=== PATIENT | male | born 1950 | race Caucasian/White ===

== ENCOUNTER 2017-05-10 11:23 | Emergency (ER) | payer BC ==
[~2017-05-10] VITALS: Ht 182.9 cm; Wt 108.2 kg
[~2017-05-10 11:23] MED LIST: ASPEC81 PO; ATV1 PO; CRS10 PO; ELET20TA PO; GLC500 PO; GLIM2TAB2 PO; KETO0.0216 OP; L-ME1CAP3 PO; LOSA50TA6 PO; MAGN400T6 PO; METO50TA7 PO; MISCCAP80 PO; MULT-506 PO; RANI150T3 PO; RXC5 PO; SILD100T PO; [UNRECOGNIZED DRUG - CODE] TOP
[2017-05-10 11:26] VITALS: TEMP 36.7; Ht 182.9 cm; Wt 108.2 kg
[2017-05-10] MEDS ORDERED: SODIUM CHLORIDE 0.9% 1000ML 1,000 ML IV STA (11:56)
[2017-05-10] MEDS ORDERED: GLC500 PO (12:35)
[2017-05-10] MEDS ORDERED: EMPA1TAB PO (12:35)
[2017-05-10] MEDS ORDERED: LEVO25TA5 PO (12:35)
[2017-05-10] MEDS ORDERED: DULA1INJ PO (12:35)
[2017-05-10] MEDS ORDERED: ROSU40TA18 PO (12:35)
[2017-05-10] MEDS ORDERED: ASPI-435 PO (12:35)
[2017-05-10 12:38] LABS: BASO % 0.4 %; BASO ABS # 0.03 K/uL (0-0.2); COMPLETE YES; EOS % 1.5 %; HEMATOCRIT 47.7 % (42-52); IG% 0.3 %; LYMPH % 22.5 %; LYMPH ABS # 1.75 K/uL (1.2-3.4); MEAN CORPUSCULAR HEMOGLOBIN 31.1 pg (25-34); MEAN CORPUSCULAR HGB CONC 34.2 g/dl (32-36); MEAN PLATELET VOLUME 11.2 fL (7.4-10.4); MONO % 8.6 %; NEUT % 66.7 %; PLATELET COUNT 220 K/uL (130-400); RED BLOOD COUNT 5.24 M/uL (4.7-6.1); WHITE BLOOD COUNT 7.77 K/uL (4.8-10.8)
[2017-05-10 12:46] LABS: POINT OF CARE TROPONIN I < 0.030 ng/ml (0-0.045)
[2017-05-10 12:59] LABS: CALCIUM 9.4 mg/dl (8.5-10.1); CREATININE 0.99 mg/dl (0.60-1.40); POTASSIUM 3.9 mmol/L (3.5-5.1)
[2017-05-10 13:04] LABS: CKMB/CK RATIO 1.9 (0-3.0)
[2017-05-10 14:06] LABS: MAGNESIUM 2.1 mg/dl (1.8-2.4)
[2017-05-10] MEDS ORDERED: OPTIRAY 320 IV PRN (14:30)
--- NOTE | 2017-05-10 14:43 | DIAGNOSTIC IMAGING REPORT ---
CT ANGIOGRAM OF THE CHEST CLINICAL HISTORY: Palpitations. COMPARISON STUDY: Chest radiographs dated 05/31/2015. TECHNIQUE: Following the IV administration of 93 cc of Optiray 320, CT angiogram of the chest was performed from the upper abdomen to the thoracic inlet utilizing the pulmonary embolus protocol. Images are reviewed in the axial, sagittal, and coronal planes. 3-D MIPS images are created and assessed. IV contrast was administered without complication. A dose lowering technique was utilized adhering to the principles of ALARA. CT DOSE: 680.94 mGy.cm FINDINGS: Thyroid: Imaged portions of the thyroid gland are normal in size and attenuation. Thoracic aorta: The thoracic aorta is normal in caliber and demonstrates standard 3-vessel arch anatomy. No dissection is seen. Pulmonary vasculature: The pulmonary trunk is normal in caliber. There are no filling defects identified in main, lobar, or segmental pulmonary branches to suggest pulmonary embolus. Heart: The heart is mildly enlarged and without pericardial effusion. There are coronary artery calcifications. Lungs and pleural spaces: There is no airspace consolidation or pleural effusion. Mild peribronchial thickening suggests reactive airway disease. A tiny calcified granuloma is noted in the right lower lobe. Linear atelectasis is seen at the left lung base. The trachea and central airways are clear. Mediastinum: There is no mediastinal lymphadenopathy. Precious: Clear. Axillae: There is no axillary lymphadenopathy. Upper abdomen: There is a tiny hiatal hernia. Partially visualized upper abdominal viscera is otherwise within normal limits. Skeletal structures: The skeletal structures are osteopenic. No lytic or blastic bony lesions are seen. Fusion hardware is seen at the thoracolumbar junction and in the lower cervical spine. IMPRESSION: 1. There is no evidence of pulmonary embolus in the main, lobar, or segmental pulmonary arteries. 2. Cardiomegaly. 3. There is no airspace consolidation or pleural effusion. Mild peribronchial thickening suggests reactive airway disease. Clinical correlation will be required. Electronically signed by: Dandre Patel M.D. 05/10/2017 2:42 PM Dictated Date/Time: 05/10/2017 2:37 PM
[2017-05-10 15:14] VITALS: BP 131/87; PULSE 67; O2SAT 97
--- NOTE | 2017-05-10 18:21 | EMERGENCY ROOM VISIT NOTE ---
ED Visit Note First contact with patient: 11:45 Chief Complaint: Heart flutters. History of Present Illness: Mr. Negrete is a 67-year-old white male who ambulates into the ED accompanied by his complaining of heart palpitations. Historically patient reports he has had a pulmonary embolism and tachycardia arrhythmia in the past; he doesn't remember the classification. He reports she' s been the hospital multiple times many years ago and received medications that slowed his heart rate down. Additionally he reports he does not have coronary artery disease. And lastly he does report his father had coronary artery disease. Patient reports for the last 4-5 days he has been having intermittent episodes of heart palpitations. He reports these occur at rest and with activity. They last for different length the time but self resolve. He reports they always start and he immediately feels like he needs to take a deep breath. The longest episode was yesterday while he was [place] in the [place]. He reports this episode lasted approximately 45 minutes. He has not taken any medications for his palpitations. He has not identified any aggravating or alleviating factors related to the palpitations. Associated with the palpitations he reports when they occur he feels slightly fatigued. He denies lightheadedness, dizziness, chest pain, shortness of breath, cough, wheezing, abdominal pain, nausea, vomiting, diaphoresis. Additionally his does report that he has been having some increasing cramping at night in his legs. Review of Systems: As noted above in history of present illness. All body systems were reviewed and found to be negative as noted above. Past Medical History: As noted above, bronchitis, cervical canal stenosis, lumbar canal stenosis, prostrate cancer, gastric ulcers and pulmonary embolism. Current Medications: Metoprolol, Cozaar, Relpax, magnesium, Zaditor, Viagra, probiotic, multivitamins, Zantac, aspirin, Trulicity, metformin, levothyroxine, Rosuvastatin, Jardiance. Allergies to Medications: Erythromycin, prednisone, simvastatin, Zithromax. Social History: Patient is currently employed; he feels safe in his home environment; he denies tobacco use and admits to social alcohol use. Physical Examination: Vital Signs: Date Time Temp Pulse Resp B/P (MAP) Pulse Ox O2 Delivery O2 Flow Rate FiO2 05/10/17 15:14 67 18 131/87 97 05/10/17 13:42 66 20 167/105 95 Room Air 05/10/17 12:17 81 05/10/17 11:41 98 Room Air 05/10/17 11:26 36.7 82 16 190/106 97 Room Air 05/10/17 11:26 97 Room Air GENERAL: 67-year-old male in no acute distress, nontoxic-appearing, afebrile and hemodynamically stable. NEUROLOGICAL: Awake, alert and oriented to person, place and time. Answering questions appropriately and following commands. Normal gait. Good hand eye coordination. No focal motor sensory deficits. SKIN: Warm, dry and pink. No soft tissue eruptions or trauma noted. HEENT: Atraumatic and normocephalic. PERRL. Sclera white and conjunctiva pink. No drainage from naris. Oral cavity moist and pink. Pharynx is nonerythematous or edematous. Speech normal. No lymphadenopathy. Trachea midline. No jugular venous distention. No carotid bruits. BACK: No tenderness over the bony spine. No CVA tenderness. THORAX: Lungs sounds are clear to auscultation and equal bilaterally with symmetrical chest wall. No wheezing, rales or rhonchi. No crepitus, tenderness , subcutaneous air or deformities noted. HEART: Regular rate and rhythm. No gallops, rubs or murmurs are appreciated. PMI is not displaced. No lifts, heaves or thrills. ABDOMEN: Flat, soft and nontender. Positive bowel sounds in all quadrants. No guarding, rigidity or organomegaly. EXTREMITIES: Moves all extremities well on command and with purpose. All distal neurovascular statuses are intact and equal bilaterally. No calf tenderness or cords. ED Course: Patient is assessed as noted above. Patient's medication list was reviewed. Laboratory Testing: Test 05/10/17 12:20 05/10/17 12:26 Range/Units White Blood Count 7.77 4.8-10.8 K/uL Red Blood Count 5.24 4.7-6.1 M/uL Hemoglobin 16.3 14.0-18.0 g/dL Hematocrit 47.7 42-52 % Mean Corpuscular Volume 91.0 80-100 fL Mean Corpuscular Hemoglobin 31.1 25-34 pg Mean Corpuscular Hemoglobin Concent 34.2 32-36 g/dl Platelet Count 220 130-400 K/uL Mean Platelet Volume 11.2 7.4-10.4 fL Neutrophils (%) (Auto) 66.7 % Lymphocytes (%) (Auto) 22.5 % Monocytes (%) (Auto) 8.6 % Eosinophils (%) (Auto) 1.5 % Basophils (%) (Auto) 0.4 % Neutrophils # (Auto) 5.18 1.4-6.5 K/uL Lymphocytes # (Auto) 1.75 1.2-3.4 K/uL Monocytes # (Auto) 0.67 0.11-0.59 K/uL Eosinophils # (Auto) 0.12 0-0.5 K/uL Basophils # (Auto) 0.03 0-0.2 K/uL RDW Standard Deviation 47.8 36.4-46.3 fL RDW Coefficient of Variation 14.3 11.5-14.5 % Immature Granulocyte % (Auto) 0.3 % Immature Granulocyte # (Auto) 0.02 0.00-0.02 K/uL Sodium Level 138 136-145 mmol/L Potassium Level 3.9 3.5-5.1 mmol/L Chloride Level 104 98-107 mmol/L Carbon Dioxide Level 27 21-32 mmol/L Anion Gap 7.0 3-11 mmol/L Blood Urea Nitrogen 18 7-18 mg/dl Creatinine 0.99 0.60-1.40 mg/dl Est Creatinine Clear Calc Drug Dose 94.5 ml/min Estimated GFR () 92.2 Estimated GFR (Non- 79.6 BUN/Creatinine Ratio 18.0 10-20 Random Glucose 175 70-99 mg/dl Calcium Level 9.4 8.5-10.1 mg/dl Magnesium Level 2.1 1.8-2.4 mg/dl Total Bilirubin 0.6 0.2-1 mg/dl Direct Bilirubin 0.2 0-0.2 mg/dl Aspartate Amino Transf (AST/SGOT) 15 15-37 U/L Alanine Aminotransferase (ALT/SGPT) 28 12-78 U/L Alkaline Phosphatase 90 45-117 U/L Total Creatine Kinase 114 39-308 U/L Creatine Kinase MB 2.2 0.5-3.6 ng/ml Creatine Kinase MB Ratio 1.9 0-3.0 Total Protein 7.2 6.4-8.2 gm/dl Albumin 3.6 3.4-5.0 gm/dl Lipase 125 73-393 U/L Bedside D-Dimer 198 0-450 ng/mlFEU Bedside Troponin I < 0.030 0-0.045 ng/ml EKG: Was read by myself and shows normal sinus rhythm with a ventricular rate of 77 bpm. Normal axis, intervals and complexes. No acute ST changes indicating ischemia, injury or infarction. Chest CTA: Was reviewed by myself and read by the radiologist showing no evidence of pulmonary embolism. Cardiomegaly. No airspace consolidation or pleural effusion. Mild peribronchial thickening suggestive reactive airway disease. Patient was hydrated with normal saline. Patient was reassessed multiple times during his stay in the emergency department. Patient's case was reviewed with Dr. Clay; we agreed on diagnostic approach, treatment, disposition and plan. Patient was educated about today's findings and instructed on his treatment plan ; he verbalizes understanding and agreement with this plan. Clinical Impression: Heart palpitations. Decision-Making: Initially my differential diagnosis I considered arrhythmias, pulmonary embolism, acute coronary syndrome, pneumothorax and other causes. Patient's blood pressure: Elevated. Blood pressure disposition: Situational. Disposition: Patient discharged home in stable condition accompanied by his ; prior to departure he was reassessed and subjectively reported he was not having any palpitation symptoms, chest pain or other concerning symptoms. Plan: Patient was encouraged to continue his current medications. Patient was encouraged to stay well-hydrated. Patient was encouraged to follow-up with his family physician and request for continued care and treatment. Patient was encouraged return ED for worsening palpitations, chest pain, shortness of breath, lightheadedness, fevers or any new/concerning symptoms.
== END 2017-05-10 15:15 | disposition home or self-care (01) ==
LOC: C.EDB 11:23 → C.EDA 15:15
DX: R00.2 Palpitations (principal); M48.02 Spinal stenosis, cervical region; M48.061 Spinal stenosis, lumbar region without neurogenic claudication; Z79.82 Long term (current) use of aspirin; Z79.84 Long term (current) use of oral hypoglycemic drugs; Z86.711 Personal history of pulmonary embolism; Z85.46 Personal history of malignant neoplasm of prostate; Z87.11 Personal history of peptic ulcer disease; Z82.49 Family history of ischemic heart disease and other diseases of the circulatory system

== ENCOUNTER → 2017-09-17 | Day surgery (SDC) | payer BC ==
[2017-08-04 13:08] VITALS: BMI 31.0
[2017-08-06 13:19] LABS: BASO % 0.6 %; BASO ABS # 0.05 K/uL (0-0.2); EOS % 1.3 %; EOS ABS # 0.12 K/uL (0-0.5); HEMATOCRIT 47.8 % (42-52); IG# 0.02 K/uL (0.00-0.02); LYMPH % 27.7 %; LYMPH ABS # 2.48 K/uL (1.2-3.4); MEAN CELL VOLUME 91.4 fL (80-100); MEAN CORPUSCULAR HEMOGLOBIN 30.6 pg (25-34); MEAN CORPUSCULAR HGB CONC 33.5 g/dl (32-36); MONO % 8.9 %; NEUT % 61.3 %; NEUT ABS # 5.48 K/uL (1.4-6.5); PLATELET COUNT 259 K/uL (130-400); RED CELL DISTRIBUTION WIDTH CV 14.6 % (11.5-14.5); WHITE BLOOD COUNT 8.95 K/uL (4.8-10.8)
[2017-08-06 13:34] LABS: CALCIUM 9.8 mg/dl (8.5-10.1); CREATININE 0.88 mg/dl (0.60-1.40); POTASSIUM 4.5 mmol/L (3.5-5.1)
[2017-08-28 10:08] VITALS: Ht 182.9 cm; Wt 103.6 kg
[2017-09-03 13:14] LABS: BASO % 0.5 %; BASO ABS # 0.06 K/uL (0-0.2); EOS % 1.1 %; EOS ABS # 0.13 K/uL (0-0.5); HEMATOCRIT 48.3 % (42-52); HEMOGLOBIN 16.2 g/dL (14.0-18.0); LYMPH % 22.6 %; LYMPH ABS # 2.57 K/uL (1.2-3.4); MEAN CELL VOLUME 91.5 fL (80-100); MEAN CORPUSCULAR HEMOGLOBIN 30.7 pg (25-34); MEAN CORPUSCULAR HGB CONC 33.5 g/dl (32-36); MEAN PLATELET VOLUME 10.9 fL (7.4-10.4); MONO % 6.5 %; MONO ABS # 0.74 K/uL (0.11-0.59); NEUT % 68.4 %; NEUT ABS # 7.77 K/uL (1.4-6.5); PLATELET COUNT 297 K/uL (130-400); RED CELL DISTRIBUTION WIDTH CV 14.6 % (11.5-14.5); RED CELL DISTRIBUTION WIDTH SD 49.3 fL (36.4-46.3); WHITE BLOOD COUNT 11.37 K/uL (4.8-10.8)
[2017-09-03 14:07] LABS: CALCIUM 9.8 mg/dl (8.5-10.1); POTASSIUM 4.5 mmol/L (3.5-5.1)
[~2017-09-17] VITALS: Ht 182.9 cm; Wt 103.6 kg
[~2017-09-17] MED LIST changes: +ADVIN25/60 INH; -ASPEC81 PO; +ASPI-435 PO; +ATROPINE SULFATE 0.1 MG/ML 5ML SYR IV PRN; -ATV1 PO; +BUPIVACAINE 0.25% 30 ML VIAL ONE; +CEFAZOLIN 2000MG IV PUSH 15 ML IV SCH; -CRS10 PO; +DEXAMETHASONE SOD INJ 4 MG/ML VIAL ONE; +DULA1INJ PO; +EMPA1TAB PO; +EpHEDrine SULFATE INJ 50 MG/ML AMP IV PRN; +EpHEDrine SULFATE INJ 50 MG/ML AMP ONE; +EpINEphrine INJ 1MG/ML AMP 1 MG/ML AMP ONE; +FENTANYL CITRATE INJ 50 MCG/1 ML 2 ML VIAL IV PRN; +FENTANYL CITRATE INJ 50 MCG/1 ML 2 ML VIAL ONE; -GLIM2TAB2 PO; +KETO10TA PO; +KETOROLAC TROMETHAMINE 30 MG/ML VIAL IV. PRN; -L-ME1CAP3 PO; +LACTATED RINGER'S 1000ML 1,000 ML IV SCH; +LEVO25TA5 PO; +LIDOCAINE HCL 2% 2 ML VIAL (20MG/ML) ONE; +LOSA1TAB38 PO; -LOSA50TA6 PO; -MAGN400T6 PO; +MAGN500T15 PO; -METO50TA7 PO; +METO50TA8 PO; +MIDAZOLAM HCL 1 MG/ML 2ML VIAL ONE; +ONDANSETRON INJ 2 MG/ML 2 ML VIAL IV PRN; +ONDANSETRON INJ 2 MG/ML 2 ML VIAL ONE; +OXYC-57 PO; +OXYCODONE/ACETAMINOPHEN 5-325 TAB PO PRN; +PRED10TA PO; +PROPOFOL IV EMULSION 10 MG/ML 20 ML VIAL IV ONE; +ROPIVACAINE 0.5% 5 MG/ML 30 ML VIAL ONE; +ROSU40TA28 PO; -RXC5 PO; +SODIUM CHLORIDE 0.9% 1000ML 1,000 ML IV SCH; +SODIUM CHLORIDE 0.9% INJ 10 ML VIAL ONE; +VNTHFA/IN INH
--- NOTE | 2017-09-17 12:34 | History & Physical Bridge - [place] ---
H&P Re-Evaluation Bridge Note: I have examined the patient, reviewed the History & Physical and in the interval since the performance of the History & Physical I have noted the following changes of clinical significance: No changes noted
--- NOTE | 2017-09-17 13:30 | [facility] Post Operative Brief Note ---
Immediate Operative Summary Operative Date Sep 17, 2017. Pre-Operative Diagnosis External Impingement and Biceps Tendinitis Post-Operative Diagnosis Same Procedure(s) Performed Left Shoulder Arthroscopy, Distal Biceps Resection, and Open Biceps Tenodesis Surgeon Dr. Aguirre Measurement And Verification Engineer Surgeon(s) Jose Maria Landeros PA-C Estimated Blood Loss 5ml Findings Consistent with Post-Op Diagnosis Specimens None Anesthesia Type General Regional Complication(s) none Disposition Disposition: Recovery Room / PACU
--- NOTE | 2017-09-17 13:40 | Discharge Instructions-SurgCtr ---
Discharge Instructions Date of Service Sep 17, 2017. Visit Reason for Visit: Biceps Tendinitis Discharge Discharge Diagnosis / Problem: SAME ABOVE Discharge Goals Goal(s): Decrease discomfort, Improve function Medications Stopped Medications Name(s): metformin Restart Stopped Medication(s): MAY RESTART 09/17/2017 Activity Recommendations Activity Limitations: as noted below Lifting Limitations: until after follow-up appointment Exercise/Sports Limitations: until after follow-up appointment Shower/Bathe: tomorrow Anesthesia . Post Anesthesia Instructions: If you have had General Anesthesia or IV Sedation: * Do not drive today. * Resume driving when surgeon permits. * Do not make important decisions or sign legal documents today. * Call surgeon for: 1. Temperature elevations greater than 101 degrees F. 2. Uncontrollable pain. 3. Excessive bleeding. 4. Persistent nausea and vomiting. 5. Medication intolerance (nausea, vomiting or rash). * For nausea and vomiting use only clear liquids such as: tea, soda, bouillon until nausea subsides, then gradually increase diet as tolerated. * If you have any concerns or questions, call your surgeon's office. If physician is unavailable and it is an emergency, call 911 or go to the nearest emergency room. . Instructions / Follow-Up Instructions / Follow-Up MEDICATIONS: * Resume previous medications unless instructed otherwise by your surgeon. * Always take pain medication on a full stomach or with food to avoid upset stomach. * Do not drink alcohol or drive while taking narcotics. * Ibuprofen or Tylenol may be taken if narcotic not needed. SPECIAL CARE INSTRUCTIONS: __ None _X_ Keep extremity elevated and iced x 48 hours; apply ice 20-30 minutes 8-10 times/day. May remove at night. _X_ Sling (WEAR FOR NEEDED FOR COMFORT) __24 hrs/day __ Remove at night __ Shoulder Immobilizer __ 24 hrs/day __ Remove at night _X_ Dressing __ Maintain until seen in office, may shower with plastic over site _X_ Remove dressings in 24-48 hours and then may shower _X_ Cover incisions with band-aids after showering _X_ Do not remove steri-strips (THEY ARE IN THE ARM-PIT AND THEY MAY FALL OFF ON THEIR OWN) Call physician if chills or temperature rises above 102 degrees or pain unrelieved by prescribed pain medications at . . Diet Recommendations Home Diet: no limitations Fluid Restriction: None Procedures Procedures Performed: Left Shoulder Arthroscopy, Distal Biceps Resection, and Open Biceps Tenodesis Pending Studies Studies pending at discharge: no Work Instructions Return To Work: after follow-up Lifting Limitations: NO LIFTING MORE THAN 5 POUNDS WITH LEFT ARM Medical Emergencies . Who to Call and When: Medical Emergencies: If at any time you feel your situation is an emergency, please call 911 immediately. . Non-Emergent Contact Non-Emergency issues call your: Primary Care Provider Call Non-Emergent contact if: you have a fever, temperature is above 101.5 . . "Provider Documentation" section prepared by Cruz Landeros. .
[2017-09-17 14:25] VITALS: TEMP 36.3
--- NOTE | 2017-09-17 14:28 | Anesthesia Progress Nt - [facility] ---
Anesthesia Post Op Note Date & Time Sep 17, 2017 at 14:28 Vital Signs Pain Intensity: 0 Vital Signs Past 12 Hours Date Time Temp Pulse Resp B/P (MAP) Pulse Ox O2 Delivery O2 Flow Rate FiO2 09/17/17 14:18 36.5 74 18 122/87 95 Room Air 09/17/17 14:17 74 20 09/17/17 14:17 76 20 95 09/17/17 14:15 122/87 09/17/17 14:12 77 10 97 09/17/17 14:12 78 10 09/17/17 14:11 130/85 09/17/17 14:07 74 17 09/17/17 14:07 74 17 100 09/17/17 14:05 133/89 09/17/17 14:02 74 16 100 09/17/17 14:02 74 16 09/17/17 14:00 125/80 09/17/17 13:57 78 20 100 09/17/17 13:57 73 20 09/17/17 13:55 123/77 09/17/17 13:52 77 17 09/17/17 13:52 76 17 100 09/17/17 13:50 132/81 09/17/17 13:47 68 16 100 09/17/17 13:47 68 16 09/17/17 13:45 128/78 09/17/17 13:42 71 17 09/17/17 13:42 72 17 99 09/17/17 13:40 36.3 74 16 136/90 98 Mask 6 09/17/17 13:40 136/90 09/17/17 12:37 0 09/17/17 12:36 80 09/17/17 12:36 80 25 98 09/17/17 12:35 125/82 09/17/17 12:31 68 17 98 09/17/17 12:31 68 09/17/17 12:30 124/74 09/17/17 12:26 72 09/17/17 12:26 80 20 98 09/17/17 12:25 109/75 09/17/17 12:21 70 19 98 09/17/17 12:21 70 09/17/17 12:20 70 20 110/76 98 09/17/17 12:20 71 09/17/17 12:16 114/83 4/12/18 12:15 69 17 99 09/17/17 12:15 69 09/17/17 12:10 70 09/17/17 12:10 70 18 152/101 96 09/17/17 12:09 153/97 09/17/17 12:05 20 09/17/17 12:05 72 20 09/17/17 12:00 67 14 09/17/17 12:00 14 09/17/17 11:55 68 19 09/17/17 11:55 19 09/17/17 11:50 14 09/17/17 11:50 67 14 09/17/17 11:45 15 09/17/17 11:45 67 15 09/17/17 11:40 16 09/17/17 11:40 71 16 09/17/17 10:12 36.3 73 18 121/82 (95) 96 Room Air Notes Mental Status: alert / awake / arousable, participated in evaluation Pt Amnestic to Procedure: Yes Nausea / Vomiting: adequately controlled Pain: adequately controlled Airway Patency, RR, SpO2: stable & adequate BP & HR: stable & adequate Hydration State: stable & adequate Anesthetic Complications: no major complications apparent
[2017-09-17 14:49] VITALS: BP 114/77; PULSE 78; O2SAT 94
--- NOTE | 2017-09-17 16:45 | OPERATIVE REPORT ---
DATE OF OPERATION: 09/17/2017 PREOPERATIVE DIAGNOSIS: External impingement of biceps tendinopathy of the left shoulder. POSTOPERATIVE DIAGNOSIS: Same. PROCEDURE: Left shoulder diagnostic arthroscopy with limited debridement, acromioplasty, and distal clavicle resection to include co-planing the undersurface of the clavicle. SURGEON: Dr. Gokul Aguirre. MOTOR COACH DRIVER: Cruz Landeros PA-C, whose assistance was necessary for positioning the arm and help with instrumentation. ANESTHESIA: General with a left interscalene nerve block. COMPLICATIONS: None. CONDITION: Stable to PACU. INDICATIONS: Reji is a pleasant 67-year-old male who is in clinic complaining of a 6-month history of left shoulder pain. I did a decompression and biceps tenodesis on his right shoulder 5 years ago and he has done very well with that. He was having similar symptoms down his left shoulder. MRI and clinical examination were diagnostic for external impingement and biceps tendinopathy. After failing conservative treatment, he elected to undergo arthroscopy. DESCRIPTION OF PROCEDURE: On 09/17/2017, he arrived at [facility] for the above procedure. He was seen in the preoperative holding and the operative extremity was identified and signed. He was given a preoperative antibiotic and a left interscalene nerve block. He was taken back to the operating room, laid on the table in supine position and put under general anesthesia. He was then put into the beachchair position. The left shoulder was prepped and draped in sterile fashion. Time-out was done. The patient's operative extremity was properly identified. A scope was introduced in the posterior portal. Diagnostic arthroscopy showed no cartilage damage to the humeral head or the glenoid. There was a little fraying of the anterior labrum. The biceps tendon went through a normal size biceps loida mechanism, but was very red on the dorsal aspect. The supraspinatus, infraspinatus, teres minor and subscapularis were all checked and intact. An anterior portal was made. A shaver was used to do a limited debridement of the intraarticular structures and the biceps tendon was arthroscopically tenotomized. The scope was then put into the subacromial space. A lateral portal was made. A shaver was used to do a complete subacromial and subdeltoid bursectomy. An ablator was used to tease the coracoacromial ligament off the undersurface of the acromion and a 5-0 esau was used to complete an acromioplasty of a large Bigliani type 3 acromion. A shaver was used to remove any excess debris and attention was turned to the distal clavicle. There were large osteophytes hanging off the undersurface of the distal clavicle. A 5-0 esau was used to remove these osteophytes and co-plane the undersurface of the clavicle to complete a distal clavicle resection. This really opened up the supraspinatus outlet. Pictures were taken. The bursal side of the rotator cuff was then examined extensively without evidence of tear. Final diagnostic arthroscopy showed no additional pathology. Arthroscopic instrument removed from the shoulder. Attention was turned to an open biceps tenodesis. A small incision was made over the inferior border of the pectoralis major. Dissection was taken down through the fascia and the long head of biceps tendon was delivered out of the wound. The tendon was then whip stitched at the anticipated level of tenodesis and the remainder of the tendon was discarded. A 6 mm hole was drilled in the bicipital groove and the biceps tendon was placed into the 6 mm hole with an Arthrex biceps button that was passed through the posterior cortex in a tension slide technique to deliver the tendon into the 6 mm hole. This gave good fixation. The wound was then irrigated, closed with 3-0 Vicryl and running 3-0 Monocryl. Steri-strips were placed. Portal sites were closed with 3-0 nylon. He was then placed in a soft dressing and a regular arm sling. He was then extubated, transferred to a medical center hospital and taken to the postanesthesia care unit in stable condition. He tolerated the procedure well. I attest to the content of the Intraoperative Record and any orders documented therein. Any exception s are noted below.
== END | disposition home or self-care (01) ==
LOC: X.SURG 09:34
PROVIDERS: ATTEND Orthopaedic Surgery
DX: M75.42 Impingement syndrome of left shoulder (principal); M75.22 Bicipital tendinitis, left shoulder; E11.9 Type 2 diabetes mellitus without complications; E78.00 Pure hypercholesterolemia, unspecified; I10 Essential (primary) hypertension; E03.9 Hypothyroidism, unspecified; K21.9 Gastro-esophageal reflux disease without esophagitis; E66.9 Obesity, unspecified; Z79.84 Long term (current) use of oral hypoglycemic drugs; Z85.46 Personal history of malignant neoplasm of prostate; Z88.1 Allergy status to other antibiotic agents; Z88.8 Allergy status to other drugs, medicaments and biological substances; Z83.3 Family history of diabetes mellitus; Z86.711 Personal history of pulmonary embolism; Z98.1 Arthrodesis status

== ENCOUNTER 2018-11-29 11:23 | Observation (INO) ==
--- NOTE | 2018-11-24 08:56 | Anesthesiology Consultation ---
Date of Service November 24, 2018 Assessment & Plan (1) Encounter for pre-operative examination: Chart Review Chart Review: Acceptable Risk for Surgery and Patient NOT seen in Pre Admission Testing Consults Requested none The patient tolerated recent shoulder surgery well. His DM is not well controlled despite taking three oral DM medicines. Given his underlying cardiac disease and the fact that he will have hardware replaced in his back, the patient is a strong candidate for chronic insulin therapy. Please make surgeon and PCP aware. History Surgery Operation Date: 11/29/18 13:45 Proposed Procedures p Right Sacroiliac Joint Fusion Revision - Jaspal Pro DO Height/Weight Height: 6 ft Weight: 103.873 kg Allergies Allergy/AdvReac Type Severity Reaction Status Date / Time prednisone Allergy Intermediate RASH Verified 11/23/18 16:11 mivacurium Allergy Mild rash Verified 11/23/18 16:11 pollen extracts Allergy Mild TREES,POLLEN-ITCHY Verified 11/23/18 16:11 ETES,STUFFY NOSE erythromycin base AdvReac Mild N/V Verified 11/23/18 16:11 simvastatin AdvReac Mild CRAMPING Verified 11/23/18 16:11 Medications Home Medications Medication Instructions Recorded Confirmed Last Taken Jardiance 25 mg PO QAM 02/18/18 11/23/18 10/27/18 08:00 Probiotic 3,000 mmu cells PO DAILY 02/18/18 11/23/18 10/27/18 08:00 albuterol sulfate 2 puff INHALATION Q6H PRN 02/18/18 11/23/18 Unknown aspirin 81 mg PO QAM 02/18/18 11/23/18 10/24/18 glimepiride 4 mg PO QAM 02/18/18 11/23/18 10/27/18 08:00 ketotifen fumarate 1 drp OPHTHALMIC (EYE) Q12H PRN 02/18/18 11/23/18 10/23/18 levothyroxine 25 mcg PO QAM 02/18/18 11/23/18 10/28/18 07:30 losartan 100 mg PO QAM 02/18/18 11/23/18 10/27/18 08:00 magnesium oxide 400 mg PO DAILY 02/18/18 11/23/18 10/27/18 08:00 metformin 1,000 mg PO BID 02/18/18 11/23/18 10/27/18 18:00 metoprolol succinate 50 mg PO QAM 02/18/18 11/23/18 10/27/18 08:00 multivitamin with minerals 1 tab PO DAILY 02/18/18 11/23/18 10/27/18 08:00 nitroglycerin 0.4 mg SUBLINGUAL UD PRN 02/18/18 11/23/18 Unknown ranitidine HCl 150 mg PO HS 02/18/18 11/23/18 10/27/18 22:00 rosuvastatin 40 mg PO HS 02/18/18 11/23/18 10/27/18 22:00 Ozempic 1 mg SUBCUT WK 10/28/18 11/23/18 10/22/18 Past Medical History Medical History CAD (coronary artery disease) (Chronic) S/P TRISH X 2 TO RCA (ACUTE ON CHRONIC OCCLUSION) 02/18/18. PER CARDIOLOGY, OKAY TO HOLD ASA AND PLAVIX X 5 DAYS FOR SURGERY. GERD (gastroesophageal reflux disease) (Chronic) HLD (hyperlipidemia) (Chronic) HTN (hypertension) (Chronic) Hypothyroidism (Chronic) Prostate cancer (Resolved) Pulmonary emboli (Resolved) 1986 - POST OP - TREATED W/ BLOOD THINNERS Cervical stenosis of spinal canal (Chronic) Lumbar stenosis with neurogenic claudication (Chronic) Coronary stent patent (Acute) two stents Diabetes mellitus, type 2 (Chronic) NIDDM. A1C 8.4% 10/08/18 Gout History of spinal stenosis Osteoarthritis Peripheral neuropathy Seasonal allergies HAS NOT USED INHALER FOR A WHILE Stomach ulcer "MANY YEARS AGO" Tachycardia REASON FOR METOPROLOL Past Family History Family History Father Diabetes Other Melanoma Past Surgical History Surgical History H/O prostatectomy (Resolved) H/O Spinal surgery (Resolved) Fusion of spine LUMBAR FUSION (2 SURGERIES) H/O shoulder surgery LEFT 10/28/18 LMA #5 [place] History of arthroscopy BL KNEE History of cardiac cath 02/2018 - [facility] - TRISH X 2 TO RCA FOR ACUTE ON CHRONIC MID RCA OCCLUSION - FOLLOWS W/ DR. ALF [place] History of colonoscopy History of elbow surgery BL History of esophagogastroduodenoscopy (EGD) History of fusion of cervical spine HARDWARE PRESENT; DENIES ROM RESTRICTIONS (3 TOTAL CERVICAL SURGERIES) History of tooth extraction Social History Smoking Status: Never smoker Do You Dip or Chew Tobacco: No Hx Alcohol Use: No alcohol intake frequency: holidays/special occasions only Hx Substance Use: No substance use type: does not use Testing Electrocardiogram Date: 11/19/18 Findings: + NSR @ (78) Other Testing Laboratory Tests 11/23/18 11/23/18 11/23/18 15:35 15:35 15:35 WBC Hgb Hct Plt Count PT 10.8 INR 1.1 Sodium 140 Potassium 4.5 Chloride 104 Carbon Dioxide 26 BUN 16 Creatinine 0.94 Glucose 170 H Hemoglobin A1c 8.4 H 11/23/18 15:35 WBC 11.18 H Hgb 16.2 Hct 48.5 Plt Count 222 PT INR Sodium Potassium Chloride Carbon Dioxide BUN Creatinine Glucose Hemoglobin A1c
[~2018-11-29 11:23] MED LIST changes: +ACETAMINOPHEN 500 MG TAB PO SCH; -ADVIN25/60 INH; -ASPI-435 PO; -ATROPINE SULFATE 0.1 MG/ML 5ML SYR IV PRN; -BUPIVACAINE 0.25% 30 ML VIAL ONE; +CEFAZOLIN 2000MG 2,000 MG/15 ML SYR IV SCH; -CEFAZOLIN 2000MG IV PUSH 15 ML IV SCH; +CeleBREX 200 MG CAP PO SCH; -DEXAMETHASONE SOD INJ 4 MG/ML VIAL ONE; -DULA1INJ PO; -ELET20TA PO; -EMPA1TAB PO; -EpHEDrine SULFATE INJ 50 MG/ML AMP IV PRN; -EpHEDrine SULFATE INJ 50 MG/ML AMP ONE; -EpINEphrine INJ 1MG/ML AMP 1 MG/ML AMP ONE; -FENTANYL CITRATE INJ 50 MCG/1 ML 2 ML VIAL IV PRN; -FENTANYL CITRATE INJ 50 MCG/1 ML 2 ML VIAL ONE; +GABAPENTIN 300 MG PO SCH; -GLC500 PO; -KETO0.0216 OP; -KETO10TA PO; -KETOROLAC TROMETHAMINE 30 MG/ML VIAL IV. PRN; -LACTATED RINGER'S 1000ML 1,000 ML IV SCH; -LEVO25TA5 PO; -LIDOCAINE HCL 2% 2 ML VIAL (20MG/ML) ONE; -LOSA1TAB38 PO; +LR 15ML/HR IV SCH; -MAGN500T15 PO; -METO50TA8 PO; -MIDAZOLAM HCL 1 MG/ML 2ML VIAL ONE; -MISCCAP80 PO; -MULT-506 PO; -ONDANSETRON INJ 2 MG/ML 2 ML VIAL IV PRN; -ONDANSETRON INJ 2 MG/ML 2 ML VIAL ONE; -OXYC-57 PO; -OXYCODONE/ACETAMINOPHEN 5-325 TAB PO PRN; -PRED10TA PO; -PROPOFOL IV EMULSION 10 MG/ML 20 ML VIAL IV ONE; -RANI150T3 PO; -ROPIVACAINE 0.5% 5 MG/ML 30 ML VIAL ONE; -ROSU40TA28 PO; -SILD100T PO; -SODIUM CHLORIDE 0.9% 1000ML 1,000 ML IV SCH; -SODIUM CHLORIDE 0.9% INJ 10 ML VIAL ONE; -VNTHFA/IN INH; -[UNRECOGNIZED DRUG - CODE] TOP
[2018-11-29] MEDS ORDERED: fentaNYL citrate 100 MCG/2 ML VIAL ONE (12:27)
[2018-11-29] MEDS ORDERED: MIDAZOLAM HCL 1 MG/ML 2ML VIAL ONE (12:27)
[2018-11-29] MEDS ORDERED: PHENYLEPHRINE 100MCG/ML 5ML SYR IV PRN (12:38)
[2018-11-29] MEDS ORDERED: LABETALOL HCL IV 5 MG/ML 20ML IV PRN (12:38)
[2018-11-29] MEDS ORDERED: MEPERIDINE HCL 25 MG/ML CARP IV PRN (12:38)
[2018-11-29] MEDS ORDERED: ePHEDrine sulfate 50 MG/ML AMP IV PRN (12:38)
[2018-11-29] MEDS ORDERED: ATROPINE SULFATE 0.1 MG/ML 10ML SYR IV PRN (12:38)
[2018-11-29] MEDS ORDERED: fentaNYL citrate 100 MCG/2 ML VIAL IV PRN (12:38)
[2018-11-29] MEDS ORDERED: ONDANSETRON INJ 2 MG/ML 2 ML VIAL IV PRN ×2 (12:38→16:25)
[2018-11-29] MEDS ORDERED: HYDROmorphone INJ 1 MG/ML SYRINGE IV PRN ×2 (12:38→16:25)
--- NOTE | 2018-11-29 12:38 | History & Physical Bridge Note ---
Date of Service November 29, 2018 History & Physical Bridge Note I have examined the patient, reviewed the History & Physical and in the interval since the performance of the History & Physical I have noted the following changes of clinical significance: no changes noted
--- NOTE | 2018-11-29 12:39 | History & Physical Report ---
Date of Service November 29, 2018 Assessment & Plan (1) Sacroiliitis: Right SI joint fusion revision Present on Admission?: Yes History of Present Illness Chief Complaint: Right SI joint pain Primary Care Provider: Gaurav Crocker DO This is a 68-year-old male well-known to the presents with chronic persistent right SI joint pain and dysfunction. Failing extensive course of nonoperative care is here for surgical intervention. Allergies Allergy/AdvReac Type Severity Reaction Status Date / Time prednisone Allergy Intermediate RASH Verified 11/29/18 11:56 mivacurium Allergy Mild rash Verified 11/29/18 11:56 pollen extracts Allergy Mild TREES,POLLEN-ITCHY Verified 11/29/18 11:56 ETES,STUFFY NOSE erythromycin base AdvReac Mild N/V Verified 11/29/18 11:56 simvastatin AdvReac Mild CRAMPING Verified 11/29/18 11:56 Home Medications Home Medications Medication Instructions Recorded Confirmed Type Jardiance 25 mg PO QAM 02/18/18 11/29/18 History Probiotic 3,000 mmu cells PO DAILY 02/18/18 11/29/18 History albuterol sulfate 2 puff INHALATION Q6H PRN 02/18/18 11/29/18 History aspirin 81 mg PO QAM 02/18/18 11/29/18 History glimepiride 4 mg PO QAM 02/18/18 11/29/18 History ketotifen fumarate 1 drp OPHTHALMIC (EYE) Q12H PRN 02/18/18 11/29/18 History levothyroxine 25 mcg PO QAM 02/18/18 11/29/18 History losartan 100 mg PO QAM 02/18/18 11/29/18 History magnesium oxide 400 mg PO DAILY 02/18/18 11/29/18 History metformin 1,000 mg PO BID 02/18/18 11/29/18 History metoprolol succinate 50 mg PO QAM 02/18/18 11/29/18 History multivitamin with minerals 1 tab PO DAILY 02/18/18 11/29/18 History nitroglycerin 0.4 mg SUBLINGUAL UD PRN 02/18/18 11/29/18 History ranitidine HCl 150 mg PO HS 02/18/18 11/29/18 History rosuvastatin 40 mg PO HS 02/18/18 11/29/18 History Ozempic 1 mg SUBCUT WK 10/28/18 11/29/18 History clopidogrel 11/29/18 History Past Med/Surg History Family History Father Diabetes Other Melanoma Social History Preferred Language: [place] Communication Ability: Effective Visual Impairment: No Limitations Group Social Worker Required: No Beliefs That Will Affect Care: None Current Living Situation: Spouse Other Information That Helps Us Care for You: No Feels Safe at Home: Yes Safety Concerns: Feels Safe At This Time Smoking Status: Never smoker Do You Dip or Chew Tobacco: No Second Hand Exposure: No Tobacco Cessation Education Requested by Patient: No Hx Alcohol Use: No Hx Substance Use: No Physical Exam Physical Exam: Patient is alert and oriented neurologically intact. Results & Data Vital Signs (Past 12 Hours) Vital Signs Temp Pulse Resp BP Pulse Ox 11/29/18 11:43 37 C 83 18 131/87 97
[2018-11-29] MEDS ORDERED: BUPIVACAINE/EPINEPHRINE 0.5% MPF 1:200,000 30 ML VIAL ONE (13:02)
[2018-11-29] MEDS ORDERED: BACITRACIN INJ 50,000 UNIT VIAL ONE (13:02)
[2018-11-29] MEDS ORDERED: FLOSEAL HEMOSTATIC MATRIX 10ML TOP ONE (14:13)
[2018-11-29] MEDS ORDERED: ONDANSETRON INJ 2 MG/ML 2 ML VIAL ONE (14:33)
[2018-11-29] MEDS ORDERED: GLYCOPYRROLATE 0.2 MG/ML VIAL ONE (14:33)
[2018-11-29] MEDS ORDERED: ROCURONIUM BROMIDE 10 MG/ML 5 ML VIAL ONE (14:33)
[2018-11-29] MEDS ORDERED: LIDOCAINE HCL 2% 2 ML VIAL/AMP(20MG/ML) INFIL ONE (14:33)
[2018-11-29] MEDS ORDERED: PROPOFOL IV EMULSION 10 MG/ML 20 ML VIAL IV ONE (14:33)
[2018-11-29] MEDS ORDERED: NEOSTIGMINE METHYLSULFATE 1 MG/ML 10ML VIAL ONE (14:33)
--- NOTE | 2018-11-29 15:23 | Fluoroscopy Report ---
FL pelvis 1-2V CLINICAL HISTORY: 68 years-old Male presenting with RIGHT SI JOINT FUSION REVISION. TECHNIQUE: 3 fluoroscopic image(s) recorded as part of an intraoperative procedure. COMPARISON: CT from 2015. FINDINGS/IMPRESSION: Transpedicular screw and federico fixation of the lower lumbar spine extending to S1 noted with interbody spacers. This has been extended to the L5-S1 level in comparison to prior CT. There is also 2 screw f ixation across sacroiliac joints a sacroiliac joint, reportedly the right joint. Please see surgical report for further details. Fluoroscopy dosage (mGy): 86.37. Fluoroscopy time: 115.4 seconds. Number or time of high level fluoroscopy (HLF), digital spot, or digital subtraction images: 0. Electronically signed by: Rhett Sibley M.D. 11/29/2018 3:22 PM
--- NOTE | 2018-11-29 15:28 | Operative Report ---
Post Operative Report Pre & Post Diagnosis Operation Date: 11/29/18 14:05 Pre-Op Diagnosis: SI Joint Dysfunction Post-Op Diagnosis: SI Joint Dysfunction Procedure Operation Date: 11/29/18 14:05 Actual Procedures #1 removal of SI joint bolts and connector on the right. #2 open SI joint fusion on the right. #3 placement of Prolex allograft filled with infuse collagen sponge 25 mm in length into the right SI joint. #4 placement of globus percutaneous SI joint screws. Surgeon Jaspal Pro, Marine D[employer] None Estimated Blood Loss 50 Findings Consistent with Post-Op Diagnosis Specimens None Indications Patient is here with chronic persistent severe right SI joint pain. After failing extensive course of nonoperative care is here for surgical intervention. Description of Procedure Patient was met with identified and informed consent obtained. Was then taken to the operative suite underwent ablation placed in a prone position the Tigre table chest padded bolsters. The right upper buttock and mid lumbar spine was then prepped and draped in normal sterile fashion. I identified the superior and inferior iliac spines with fluoroscopy as well as the sacral sulcus and SI joint. Then created incision along the SI joint posteriorly. Was able to identify the iliac bolts and connector. This was removed. I then was able to identify the SI joint directly. I then placed a guidepin within the SI joint and using fluoroscopy in AP and lateral planes open the SI joint with a space finder. The prolix cannula was placed over the space finder. I then drilled and curetted out the SI joint space. After this is complete a 25 mm cortical allograft filled with infuse collagen sponge was tapped into position. I verified my position with fluoroscopy. The working apparatus was removed. I then proceeded to the screw portion of the procedure. A 3 cm incision was made along the right upper buttock along the posterior sacral sulcus. A Steinmann guidewire was then percutaneous placed into the upper portion of the SI joint. I verified my position on the lateral inlet and outlet views. The guidewire was driven across the SI joint. I dilated the space over the guidewire measured for a 55 mm screw. I then used a 10 mm cannulated drill across the joint. And placed a 55 mm S by screw DUNAWAY-coated and slotted filled with infuse collagen sponge and local autograft. This demonstrated excellent fit and fixation. I then used out regular guide and placed a distal second screw beneath the inserted graft. Using the same fashion controlled over the Steinmann pin across the SI joint. And placed a 40 mm DUNAWAY-coated slotted sacral screw filled with autograft and DBM. Both screws demonstrated excellent fit. After this was complete the incisions were copiously irrigated closed with subcutaneous Vicryl and 4 Monocryl for final skin closure. Steri-Strip sterile dressing placed. Patient will continue to PACU stable condition. I attest to the content of the Intraoperative Record and any orders documented therein. Any exceptions are noted below.
--- NOTE | 2018-11-29 15:54 | Anesthesiology Progress Note ---
Date of Service November 29, 2018 Anesthesia Post Procedure Vital Signs Vital Signs: Temp Pulse Resp BP Pulse Ox 11/29/18 15:45 62 16 139/87 100 11/29/18 15:35 61 18 136/87 100 11/29/18 15:28 36 C L 61 18 147/87 H 100 11/29/18 11:43 37 C 83 18 131/87 97 Pain Intensity Bilateral Lower Back: Pain Intensity: 8 Back: Pain Intensity: 0 Transfer of Care Handoff Completed per policy Notes Mental Status: alert / awake / arousable and participated in evaluation Patient Amnestic to Procedure: Yes Nausea / Vomiting: adequately controlled Pain: adequately controlled Airway Patency, RR, SpO2: stable & adequate BP & HR: stable & adequate Hydration State: stable & adequate Anesthetic Complications: no major complications apparent and Pt Satisfied with anesthetic care
[2018-11-29] MEDS ORDERED: NITROGLYCERIN SL 0.4 MG/TAB TAB SL PRN (16:25)
[2018-11-29] MEDS ORDERED: DO NOT ADMINISTER FLU VACCINE PRN (16:25)
[2018-11-29] MEDS ORDERED: MAGNESIUM HYDROXIDE SUSP 30 ML UDC PO PRN (16:25)
[2018-11-29] MEDS ORDERED: DO NOT ADMINISTER PNEUMOCOCCAL VACCINE PRN (16:25)
[2018-11-29] MEDS ORDERED: LORazepam 1 MG/2 ML VIAL IV PRN (16:25)
[2018-11-29] MEDS ORDERED: OXYCODONE HCL IR 5 MG TAB (IMMEDIATE RELEASE) PO PRN (16:25)
[2018-11-29] MEDS ORDERED: ACETAMINOPHEN 500 MG TAB PO PRN (16:25)
[2018-11-29] MEDS ORDERED: LORazepam 1 MG TAB PO PRN (16:25)
[2018-11-29] MEDS ORDERED: GLUCAGON FOR INJ 1 MG VIAL SQ PRN ×2 (17:15→19:13)
[2018-11-29] MEDS ORDERED: GLUCOSE 40% GEL 15 GM TUBE PO PRN ×2 (17:15→19:13)
[2018-11-29] MEDS ORDERED: DEXTROSE 50% 50 ML SYRINGE IV PRN ×2 (17:15→19:13)
[2018-11-29] MEDS ORDERED: GLUCOSE 10 TABS/TUBE PO PRN ×2 (17:15→19:13)
[2018-11-29] MEDS ORDERED: CARBOHYDRATES FOR HYPOGLYCEMIA PO PRN ×2 (17:15→19:13)
[2018-11-29] MEDS ORDERED: PHARMACY GLYCEMIC MGMT CONSULT PRN (17:20)
[2018-11-29] MEDS: INSULIN ASPART 100 UNITS/ML 3 ML PEN SC SCH ×2 (18:23→21:30)
--- NOTE | 2018-11-29 18:50 | Hospitalist Consultation ---
Date of Consultation November 29, 2018 Assessment & Plan (1) Sacroiliitis: S/P removal of SI joint bolts and connector on the right/open SI joint fusion on the right/placement of globus percutaneous SI joint screws by Dr. Pro No post op complications Continue incentive spirometry Pain control Monitor H/H PT/OT eval (2)CAD (coronary artery disease) S/P stent placement on 02/23 Continue metoprolol, aspirin, rosuvstatin Plavix was dicontinued by Dr. Robles on 10/24 Asymptomatic (3) Diabetes mellitus, type 2: HA1c: 8.1 on 06/26 Will hold on oral DM med Will add insulin sliding scale Monitor BMP Check Hba1c in am (4) HLD (hyperlipidemia): Continue rosuvastatin (5) HTN (hypertension): Continue losartan, metoprolol Monitor BP (6) Hypothyroidism: TSH: 3.4 on 02/03/18 Continue levothyroxine Check TSH in am (7) Prostate cancer: S/P surgery (8) DVT px as per ortho (9) Disposition Follow up with PCP Dr. Crocker Thank you for the consult We will continue follow up the patient with you during the hospital course Please call [employer] pager for any question History of Present Illness Reason for Consultation: Medical management Requesting Physician: Dr. Pro Attending Physician: Jaspal Pro DO History of Present Illness 67 y/o M with PMH DM II, HTN, HLD, PE, hypothyroidism, prostate CA s/p surgery, GERD, CAD s/p stent placement on 02/23, S/P Right SI joint fusion revision performed by Dr. Pro for chronic persistent right SI joint pain and dysfunction after failing conservative management. He was seen today for post- op medical management. Patient said that his pain is control and he feels fine currently. Denies fever/chills, diaphoresis, DUNAWAY, syncope, vision changes, neck pain, orthopnea, cough, sore throat, choking, otalgia, rhinorrhea, abdominal pain, paresthesias, weakness, extremity edema, rashes, urinary symptoms chest pain and SOB. Allergies Allergy/AdvReac Type Severity Reaction Status Date / Time prednisone Allergy Intermediate RASH Verified 11/29/18 11:56 mivacurium Allergy Mild rash Verified 11/29/18 11:56 pollen extracts Allergy Mild TREES,POLLEN-ITCHY Verified 11/29/18 11:56 ETES,STUFFY NOSE erythromycin base AdvReac Mild N/V Verified 11/29/18 11:56 simvastatin AdvReac Mild CRAMPING Verified 11/29/18 11:56 Home Medications Home Medications Medication Instructions Recorded Confirmed Type Jardiance 25 mg PO QAM 02/18/18 11/29/18 History Probiotic 3,000 mmu cells PO DAILY 02/18/18 11/29/18 History albuterol sulfate 2 puff INHALATION Q6H PRN 02/18/18 11/29/18 History aspirin 81 mg PO QAM 02/18/18 11/29/18 History glimepiride 4 mg PO QAM 02/18/18 11/29/18 History ketotifen fumarate 1 drp OPHTHALMIC (EYE) Q12H PRN 02/18/18 11/29/18 History levothyroxine 25 mcg PO QAM 02/18/18 11/29/18 History losartan 100 mg PO QAM 02/18/18 11/29/18 History magnesium oxide 400 mg PO DAILY 02/18/18 11/29/18 History metformin 1,000 mg PO BID 02/18/18 11/29/18 History metoprolol succinate 50 mg PO QAM 02/18/18 11/29/18 History multivitamin with minerals 1 tab PO DAILY 02/18/18 11/29/18 History nitroglycerin 0.4 mg SUBLINGUAL UD PRN 02/18/18 11/29/18 History ranitidine HCl 150 mg PO HS 02/18/18 11/29/18 History rosuvastatin 40 mg PO HS 02/18/18 11/29/18 History Ozempic 1 mg SUBCUT WK 10/28/18 11/29/18 History clopidogrel 11/29/18 History Patient History Family History Father Diabetes Other Melanoma Social History Preferred Language: Chinese Communication Ability: Effective Visual Impairment: No Limitations Senior Publications Specialist Required: No Beliefs That Will Affect Care: None Current Living Situation: Spouse Other Information That Helps Us Care for You: No Feels Safe at Home: Yes Safety Concerns: Feels Safe At This Time Smoking Status: Never smoker Do You Dip or Chew Tobacco: No Second Hand Exposure: No Tobacco Cessation Education Requested by Patient: No Hx Alcohol Use: No Hx Substance Use: No Review of Systems Review of Systems: All systems reviewed & are unremarkable except as noted in HPI & below Physical Exam Physical Exam: General- No acute distress Head- atraumatic Eyes- PERRL, EOMI, ENT- oropharynx clear Neck- supple, no JVD Lungs- clear to auscultation Heart- regular rhythm; no murmur Abdomen- normal bowel sounds, soft, nontender Extremities- no calf tenderness Neuro- alert, oriented x 3; PERRL, EOMI; no facial palsy; no dysarthria Skin- warm & dry Results & Data Vital Signs (Past 12 Hours) Vital Signs Temp Pulse Resp BP Pulse Ox 11/29/18 18:10 36.4 C L 59 L 16 121/75 95 11/29/18 17:18 67 16 130/79 11/29/18 16:40 36.4 C L 54 L 16 143/84 H 98 11/29/18 16:10 36.5 C 52 L 16 143/89 H 94 11/29/18 16:05 54 L 15 123/78 94 11/29/18 15:55 59 L 15 138/83 98 11/29/18 15:45 62 16 139/87 100 11/29/18 15:35 61 18 136/87 100 11/29/18 15:28 36 C L 61 18 147/87 H 100 11/29/18 11:43 37 C 83 18 131/87 97
--- NOTE | 2018-11-29 18:51 | Pharmacy Report ---
PHA: Glycemic Control AP - Date of Service November 29, 2018 - Assessment & Plan Laboratory Tests 11/23/18 11/29/18 11/29/18 15:35 12:09 15:33 POC Glucose 140 H 130 H Hemoglobin A1c 8.4 H 11/29/18 17:29 POC Glucose 128 H Hemoglobin A1c Patient's home diabetes regimen: * Jardiance 25mg daily * metformin 1g po BID * Amaryl 4mg daily * Ozempic 1mg sq weekly HbA1c = 8.4% Pt home regimen is currently on hold with this admission. BSGs have remained normoglycemic thru the day. Opted to add Novolog CF/CR and a pending order of Lantus 5 units sq x 1 tonite if BSG > 180mg/dL. * Basal insulin: Lantus 5 units sq x 1 tonite IF BSG > 180mg/dL * Correctional Insulin: Novolog Correction per scale ACHS Goal Range: Low 120 mg/dL - High 160 mg/dL Correction Factor: 25 mg/dL/unit * Prandial insulin: Per carb ratio of 1 unit per 10 grams CHO consumed Pharmacy will continue to monitor patient daily and write orders per [facility] inpatient glycemic control protocol. Thanks. * Please note that the plan above was derived based on current level of insulin resistance and hospital stress. These recommendations are appropriate for inpatient admission only. Plan of care upon discharge will need to be reassessed to avoid potential outpatient hypo/hyperglycemia.
[2018-11-29] MEDS: KETOROLAC TROMETHAMINE 15 MG/ML VIAL IV PRN (19:17)
[2018-11-29] MEDS ORDERED: INSULIN GLARGINE SOLOSTAR 100 UNITS/ML 3 ML PEN SC SCH (21:00)
[2018-11-29] MEDS ORDERED: ROSUVASTATIN CALCIUM 20 MG TAB PO SCH (21:00)
[2018-11-29] MEDS ORDERED: INSULIN ASPART 100 UNITS/ML 3 ML PEN SC SCH (21:00)
[2018-11-29] MEDS: CEFAZOLIN 2000MG 2,000 MG/15 ML SYR IV SCH (21:18)
[2018-11-29] MEDS: DOCUSATE SODIUM 100 MG CAP PO SCH (21:18)
[2018-11-29] MEDS: SODIUM CHLORIDE 0.9% 1000ML 1,000 ML IV SCH (22:52)
[2018-11-30] MEDS: CEFAZOLIN 2000MG 2,000 MG/15 ML SYR IV SCH ×2 (03:53→11:16)
[2018-11-30] MEDS: SODIUM CHLORIDE 0.9% 1000ML 1,000 ML IV SCH (04:30)
[2018-11-30] MEDS: KETOROLAC TROMETHAMINE 15 MG/ML VIAL IV PRN (05:31)
[2018-11-30 06:07] LABS: Hematocrit (blood only) 44.1 % (42-52); Hemoglobin 14.5 g/dL (14.0-18.0); Mean Corpuscular Hgb Conc 32.9 g/dL (32-36); Mean Corpuscular Volume 92.1 fL (80-100); Mean Platelet Volume 10.4 fL (7.4-10.4); Platelet Count 180 K/uL (130-400); RDW Standard Deviation 50.2 fL (36.4-46.3); Red Blood Count 4.79 M/uL (4.7-6.1); White Blood Count 9.13 K/uL (4.8-10.8)
[2018-11-30 06:12] LABS: Estimated Average Glucose 197 mg/dl; Hemoglobin A1C 8.5 % (4.5-5.6)
[2018-11-30] MEDS ORDERED: LEVOTHYROXINE SODIUM 25 MCG TABLET PO SCH (06:30)
[2018-11-30 06:38] LABS: BUN Creatinine Ratio 17.9 (10-20); Calcium 8.5 mg/dl (8.5-10.1); Creatinine Clr Calc Pharmacy 100.2 ml/min; Est GFR (African American) 103.3; Est GFR (Non-African American) 89.1; Potassium 4.2 mmol/L (3.5-5.1)
--- NOTE | 2018-11-30 07:34 | Anesthesiology Progress Note ---
Date of Service November 30, 2018 Anesthesia Post Procedure Vital Signs Vital Signs: Temp Pulse Resp BP Pulse Ox 11/30/18 03:38 36.8 C 71 16 131/84 95 11/29/18 22:55 36.6 C 67 18 135/89 96 11/29/18 19:40 36.4 C L 63 16 133/84 96 11/29/18 18:10 36.4 C L 59 L 16 121/75 95 11/29/18 17:18 67 16 130/79 11/29/18 16:40 36.4 C L 54 L 16 143/84 H 98 11/29/18 16:10 36.5 C 52 L 16 143/89 H 94 11/29/18 16:05 54 L 15 123/78 94 11/29/18 15:55 59 L 15 138/83 98 11/29/18 15:45 62 16 139/87 100 11/29/18 15:35 61 18 136/87 100 11/29/18 15:28 36 C L 61 18 147/87 H 100 11/29/18 11:43 37 C 83 18 131/87 97 Pain Intensity Bilateral Lower Back: Pain Intensity: 8 Back: Pain Intensity: 7 Notes Mental Status: alert / awake / arousable and participated in evaluation Patient Amnestic to Procedure: Yes Nausea / Vomiting: adequately controlled Pain: adequately controlled Airway Patency, RR, SpO2: stable & adequate BP & HR: stable & adequate Hydration State: stable & adequate Anesthetic Complications: no major complications apparent and Pt Satisfied with anesthetic care
--- NOTE | 2018-11-30 08:50 | Hospitalist Progress Note ---
Date of Service November 30, 2018 Assessment & Plan (1) Sacroiliitis: S/P SI joint fusion revision R - Dr. Pro POD #1 EBL 50ml Tolerated procedure well pain/wound control per ortho Activity/therapy as directed by ortho TTWB to RLE Continue incentive spirometry (2) CAD (coronary artery disease): No CP or SOB S/P stent placement on 02/[address] Robles Continue metoprolol, losartan, crestor, ASA Plavix was discontinued by Dr. Robles on 10/24 (3) T2DM (type 2 diabetes mellitus): A1C 8.5 today Glycemic pharmacist on board -inpt blood sugar controlled FBS 125 on metformin, jardiance, ozempic, glimepiride as outpt (4) HTN (hypertension): blood pressure controlled continue metoprolol and losartan (5) HLD (hyperlipidemia): continue statin (6) Hypothyroidism: continue levothyroxine TSH 1.39 (7) GERD (gastroesophageal reflux disease): Asymptomatic Continue ranitidine (8) Prostate cancer: s/p prostatectomy (9) DVT prophylaxis: encourage ambulation SCDS Disposition: per ortho Follow up: PCP Dr. Crocker upon discharge Patient was seen and examined in collaboration with Dr. Fuentes, please see addendum Thank you for this consultation. We will follow the patient with you during their hospital stay. You can reach a [facility] via pager @ [phone]. Supervising Physician Co-Signing Physician Notes Patient seen this morning by Beata Domingo PA-C. Care coordinated with her. Patient was discharged before I made my rounds. Subjective Patient seen and examined in room 319. Follow up revision R SI joint fusion by Dr. Pro, POD#1. Pt feels well. Complains of incisional pain. "I need my L SI joint done in 8 weeks so I can still feel that pain. Denies any chest pain, sob, numbness/tingling, n/v/d, f/c/s. Urinating with out difficulty. Passing Flatus. Appetite is good. Ready to start therapy. Offers no concerns or complaints. Review of Systems Review of Systems: As noted per HPI, 10 systems reviewed and negative unless noted above. Physical Exam Physical Exam: Gen: WD/WN, M, sitting at bedside, NAD, A&O x3 HEENT: Normocephalic, atraumatic, conjunctivae moist, sclerae anicteric, mucous membranes moist. Lung: Clear to Auscultation bilaterally, no wheezes/rales/rhonchi Heart: Regular rate, regular rhythm, no murmurs, rubs, or gallops Abdomen: Soft, NT, ND +BS x 4 Extremities: No edema MSK: Dressing to lumbar sacral region CDI, Dressing to R lateral SI joint with mild amount of serosanginous drainage Skin: Warm, no rash, negative turgor. Results & Data Vital Signs (Past 12 Hours) Vital Signs Temp Pulse Resp BP Pulse Ox 11/30/18 08:20 36.8 C 66 18 145/87 H 92 11/30/18 03:38 36.8 C 71 16 131/84 95 11/29/18 22:55 36.6 C 67 18 135/89 96 Laboratory Results Short CBC 11/30/18 Range/Units 05:56 WBC 9.13 (4.8-10.8) K/uL Hgb 14.5 (14.0-18.0) g/dL Hct 44.1 (42-52) % Plt Count 180 (130-400) K/uL BMP 11/30/18 05:56 Sodium 139 Potassium 4.2 Chloride 107 Carbon Dioxide 28 BUN 16 Creatinine 0.89 Glucose 125 H Calcium 8.5 Medications Administered Docusate Sodium (Colace) 100 mg PO BID [facility] Stop: 12/29/18 20:59 Last Admin: 11/29/18 21:18 Dose: 100 mg Documented by: [id number] Sodium Chloride (Nss 1000ml) 1,000 mls @ 80 mls/hr IV .[id number] [facility] Stop: 11/30/18 16:24 Last Admin: 11/30/18 04:30 Dose: Not Given Documented by: [id number] Admin: 11/29/18 22:52 Dose: 80 mls/hr Documented by: [id number] Cefazolin Sodium (Ancef 2000mg) 2,000 mg in 15 mls @ 3.75 mls/min IV Q8H [facility]; Protocol Stop: 11/30/18 12:03 Last Admin: 11/30/18 03:53 Dose: 3.75 mls/min Documented by: [id number] Admin: 11/29/18 21:18 Dose: 3.75 mls/min Documented by: [id number] Insulin Aspart (Novolog Flexpen) 0 units SC ACHS [facility] Stop: 12/29/18 17:29 Last Admin: 11/29/18 21:30 Dose: Not Given Documented by: [id number] Cosigned by: [id number] Admin: 11/29/18 18:23 Dose: 4 units Documented by: [id number] Cosigned by: [id number] Ketorolac Tromethamine (Toradol) 15 mg IV Q6H PRN PRN Reason: MODERATE Pain 4,5,6 Stop: 12/04/18 16:24 Last Admin: 11/30/18 05:31 Dose: 15 mg Documented by: [id number] Admin: 11/29/18 19:17 Dose: 15 mg Documented by: [id number] Levothyroxine Sodium (Synthroid) 25 mcg PO DAILYBB [facility] Stop: 12/30/18 06:29 Last Admin: 11/30/18 05:31 Dose: 25 mcg Documented by: [id number] Ranitidine HCl (Zantac) 150 mg PO HS [facility] Stop: 12/29/18 20:59 Last Admin: 11/29/18 21:18 Dose: 150 mg Documented by: [id number] Rosuvastatin Calcium (Crestor) 40 mg PO HS [facility] Stop: 12/29/18 20:59 Last Admin: 11/29/18 21:18 Dose: 40 mg Documented by: [id number] Discontinued Medications Acetaminophen (Tylenol) 1,000 mg PO PREOP [facility] Stop: 11/29/18 18:00 Last Admin: 11/29/18 12:12 Dose: 1,000 mg Documented by: [id number] Bacitracin (Bacitracin) Confirm Administered Dose 50,000 units .ROUTE .STK-MED ONE Stop: 11/29/18 13:03 Last Admin: 11/29/18 14:12 Dose: 50,000 units Documented by: [id number] Bupivacaine HCl/Epinephrine Bitart (Sensorcaine/Epinephrine 0.5% Mpf 1:200,000) Confirm Administered Dose 30 ml .ROUTE .STK-MED ONE Stop: 11/29/18 13:03 Last Admin: 11/29/18 14:43 Dose: 20 ml Documented by: [id number] Celecoxib (Celebrex) 200 mg PO PREOP [facility] Stop: 11/29/18 18:00 Last Admin: 11/29/18 12:12 Dose: 200 mg Documented by: [id number] Gabapentin (Neurontin) 300 mg PO PREOP [facility] Stop: 11/29/18 18:00 Last Admin: 11/29/18 12:12 Dose: 300 mg Documented by: [id number] Lactated Ringer's (Lr) 1,000 mls @ 15 mls/hr IV .Q24H [facility] Stop: 11/30/18 05:59 Last Infusion: 11/29/18 13:13 Dose: 0 mls/hr Documented by: [id number] Admin: 11/29/18 12:11 Dose: 15 mls/hr Documented by: [id number] Cefazolin Sodium (Ancef 2000mg) 2,000 mg in 15 mls @ 3.75 mls/min IV PREOP [facility]; Protocol Stop: 11/29/18 18:00 Last Admin: 11/29/18 13:11 Dose: 3.75 mls/min Documented by: [id number] Insulin Glargine (Lantus Solostar Pen) 0 units SC PM [facility] Stop: 11/29/18 21:01 Last Admin: 11/29/18 21:29 Dose: Not Given Documented by: [id number] Cosigned by: [id number] Miscellaneous (Floseal Hemostatic Matrix 10ml) 10 ml TOP ONCE ONE Stop: 11/29/18 14:14 Last Admin: 11/29/18 14:43 Dose: 10 ml Documented by: [id number]
[2018-11-30] MEDS: DOCUSATE SODIUM 100 MG CAP PO SCH (08:53)
[2018-11-30] MEDS: INSULIN ASPART 100 UNITS/ML 3 ML PEN SC SCH (08:58)
[2018-11-30] MEDS ORDERED: METOPROLOL SUCC 50MG EXT REL TAB PO SCH (09:00)
[2018-11-30] MEDS ORDERED: NON-FORMULARY MEDICATION (Empagliflozin [Jardiance] 25 MG) PO SCH (09:00)
[2018-11-30] MEDS ORDERED: ASPIRIN 81 MG CHEW PO SCH (09:00)
[2018-11-30] MEDS ORDERED: CEROVITE ADV FORMULA TAB PO SCH (09:00)
[2018-11-30] MEDS ORDERED: LACTOBACILLUS ACIDOPHILUS (FLORANEX) TAB PO SCH (09:00)
[2018-11-30] MEDS ORDERED: GLIMEPIRIDE 2 MG TAB PO SCH (09:00)
[2018-11-30] MEDS ORDERED: MAGNESIUM OXIDE 400 MG TAB PO SCH (09:00)
[2018-11-30] MEDS ORDERED: LOSARTAN POTASSIUM 50 MG TAB PO SCH (09:00)
--- NOTE | 2018-11-30 09:19 | Discharge Summary ---
Date of Service November 30, 2018 Admission HPI Per Admitting Provider This is a 68-year-old male well-known to the presents with chronic persistent right SI joint pain and dysfunction. Failing extensive course of nonoperative care is here for surgical intervention. Principal Diagnosis Right sacroiliitis Discharge Data Allergies Allergy/AdvReac Type Severity Reaction Status Date / Time prednisone Allergy Intermediate RASH Verified 11/29/18 11:56 mivacurium Allergy Mild rash Verified 11/29/18 11:56 pollen extracts Allergy Mild TREES,POLLEN-ITCHY Verified 11/29/18 11:56 ETES,STUFFY NOSE erythromycin base AdvReac Mild N/V Verified 11/29/18 11:56 simvastatin AdvReac Mild CRAMPING Verified 11/29/18 11:56 Consultations 11/29/18 17:00 Consult Hospitalist Routine Procedures Performed Operation Date: 11/29/18 14:05 Actual Procedures p Right Sacroiliac Joint Fusion Revision(Right) - Jaspal Pro DO Ordered Studies 11/29/18 14:05 FL fluoroscopy <1hr Routine FL pelvis 1-2V Routine Hospital Course (1) Sacroiliitis: Patient underwent revision right SI joint fusion tolerated as well as taken to the orthopedic for postoperative. Postop day 1 he was ambulating with walker. Pain markedly improved. Subsequently discharged home. Discharge orders and instructions reviewed in detail. Total Time Total Time Spent Total Time Spent (In Minutes): 20 minutes Discharge Plan Discharge Items Patient Disposition: Home - Self-Care Reason For Visit: SI Joint Dysfunction Discharge Diagnosis: SI joint dysfunction Discharge Goals: Decrease discomfort Activity: As commented below Lifting: No more than 5 pounds Bathing: May shower/bathe in 3 days Weightbearing: Right toe touch Non-emergency contact: Primary Care Provider Call non-emergency contact if: you have any medication questions Follow-up/Referrals: Gaurav Crocker DO [Primary Care Provider] - Diet: Regular Addtl Provider Instructions: Patient to follow-up in the office in 2 weeks as scheduled. Prescriptions: New oxycodone 5 mg Tablet 5 mg PO Q4H PRN (Reason: Pain) Qty: 30 RF: 0 Continued Ozempic 1 mg/dose (2 mg/1.5 mL) Pen Injector 1 mg SUBCUT WK RF: 0 glimepiride 4 mg Tablet 4 mg PO QAM RF: 0 aspirin 81 mg Tablet,Chewable 81 mg PO QAM RF: 0 albuterol sulfate 90 mcg/actuation Hfa Aerosol Inhaler 2 puff INHALATION Q6H PRN (Reason: Shortness Of Breath Or Wheezing) RF: 0 ketotifen fumarate 0.025 % (0.035 %) Drops 1 drp OPHTHALMIC (EYE) Q12H PRN (Reason: Itching) RF: 0 losartan 100 mg Tablet 100 mg PO QAM RF: 0 levothyroxine 25 mcg Capsule 25 mcg PO QAM RF: 0 Jardiance 25 mg Tablet 25 mg PO QAM RF: 0 metoprolol succinate 50 mg Tablet Extended Release 24 Hr 50 mg PO QAM RF: 0 magnesium oxide 400 mg (241.3 mg magnesium) Tablet 400 mg PO DAILY RF: 0 metformin 1,000 mg Tablet 1,000 mg PO BID RF: 0 multivitamin with minerals Tablet 1 tab PO DAILY RF: 0 Probiotic 3 billion cell Capsule 3,000 mmu cells PO DAILY RF: 0 ranitidine HCl 150 mg Tablet 150 mg PO HS RF: 0 rosuvastatin 40 mg Tablet 40 mg PO HS RF: 0 nitroglycerin 0.4 mg Tablet, Sublingual 0.4 mg Sublingual UD PRN (Reason: Chest Pain) RF: 0 Stand-Alone Forms: [facility] Discharge Orders: Discharge Order (Routine); Ordered 11/30/18 Ordered By: Jaspal Pro Admission Data Admit Date/Time: 11/29/18 15:34 Attending Provider: Jaspal Pro Admit Provider: Jaspal Pro Primary Care Provider: Gaurav Crocker Other Providers: Jayro Fuentes Service: Surgical Services
[2018-11-30] MEDS ORDERED: INSULIN GLARGINE SOLOSTAR 100 UNITS/ML 3 ML PEN SC SCH (21:00)
[2018-12-01] MEDS ORDERED: BISACODYL 5 MG TABEC PO PRN (06:00)
[2018-12-01] MEDS ORDERED: POLYETHYLENE (MIRALAX) 17 GM PACK PO SCH (09:00)
== END 2018-11-30 11:58 | disposition home or self-care (01) ==
LOC: ASU 11:23 → 3E 11:23

== ENCOUNTER 2019-03-08 10:22 | Observation (INO) ==
--- NOTE | 2019-02-28 16:38 | PAT Medication Instructions ---
Medication Instructions Date of Service February 28, 2019 Home Medications Jardiance 25 mg PO QAM Probiotic 3,000 mmu cells PO DAILY albuterol sulfate 2 puff INHALATION Q6H PRN aspirin 81 mg PO QAM glimepiride 4 mg PO QAM ketotifen fumarate 1 drp OPHTHALMIC (EYE) Q12H PRN levothyroxine 25 mcg PO QAM losartan 100 mg PO QAM magnesium oxide 400 mg PO DAILY metformin 1,000 mg PO BID metoprolol succinate 50 mg PO QAM multivitamin with minerals 1 tab PO DAILY nitroglycerin 0.4 mg SUBLINGUAL UD PRN ranitidine HCl 150 mg PO HS rosuvastatin 40 mg PO HS Ozempic 1 mg SUBCUT WK Continue as directed nitroglycerin 0.4 mg SUBLINGUAL UD PRN (if needed) ASK your prescriber and surgeon Ozempic 1 mg SUBCUT WK aspirin 81 mg PO QAM DO NOT take the morning of surgery Jardiance 25 mg PO QAM Probiotic 3,000 mmu cells PO DAILY glimepiride 4 mg PO QAM losartan 100 mg PO QAM magnesium oxide 400 mg PO DAILY metformin 1,000 mg PO BID multivitamin with minerals 1 tab PO DAILY Take morning of surgery With a small sip of water, OTHERWISE NOTHING TO EAT OR DRINK AFTER MIDNIGHT: albuterol sulfate 2 puff INHALATION Q6H PRN (use if needed; please bring with you to hospital day of surgery if possible) ketotifen fumarate 1 drp OPHTHALMIC (EYE) Q12H PRN (if needed) levothyroxine 25 mcg PO QAM metoprolol succinate 50 mg PO QAM Take evening before surgery albuterol sulfate 2 puff INHALATION Q6H PRN (if needed) ketotifen fumarate 1 drp OPHTHALMIC (EYE) Q12H PRN (if needed) metformin 1,000 mg PO BID ranitidine HCl 150 mg PO HS rosuvastatin 40 mg PO HS Other Notes If you have any questions please call us at [phone] or [phone] or [phone] or [phone]
--- NOTE | 2019-03-01 09:58 | Anesthesiology Consultation ---
Date of Service March 01, 2019 Assessment & Plan (1) Encounter for pre-operative examination: - Cardiology: 10/19/18: seen prior to SI joint fusion (done 10/2018 at [facility])- "No contraindications to surgery as planned." - Check BSG AM DOS - ASA instructions per surgeon/cardiology* Chart Review Chart Review: Pending: Refer to Additional Notes / Consult section (pending preop labs) and Patient seen in Pre Admission Testing Teaching & Discussion Pre-Anesthesia Teaching/Discussion Notes: Instructed NPO after midnight before surgery,except medications with 15 cc of water. Medication instructions provided according to the PAT guidelines. History Surgery Operation Date: 03/08/19 12:05 Proposed Procedures p Left Sacroiliac Joint Fusion - Jaspal Pro DO Height/Weight Height: 6 ft Weight: 104.9 kg Allergies Allergy/AdvReac Type Severity Reaction Status Date / Time prednisone Allergy Intermediate RASH Verified 02/22/19 12:54 pollen extracts Allergy Mild TREES,POLLEN-ITCHY Verified 02/22/19 12:54 ETES,STUFFY NOSE erythromycin base AdvReac Mild N/V Verified 02/22/19 12:54 simvastatin AdvReac Mild CRAMPING Verified 02/22/19 12:54 Medications Home Medications Medication Instructions Recorded Confirmed Last Taken Jardiance 25 mg PO QAM 02/18/18 02/22/19 11/28/18 09:00 Probiotic 3,000 mmu cells PO DAILY 02/18/18 02/22/19 11/28/18 05:30 albuterol sulfate 2 puff INHALATION Q6H PRN 02/18/18 02/22/19 Unknown aspirin 81 mg PO QAM 02/18/18 02/22/19 11/28/18 09:00 glimepiride 4 mg PO QAM 02/18/18 02/22/19 11/28/18 18:00 ketotifen fumarate 1 drp OPHTHALMIC (EYE) Q12H PRN 02/18/18 02/22/19 10/23/18 levothyroxine 25 mcg PO QAM 02/18/18 02/22/19 11/29/18 05:30 losartan 100 mg PO QAM 02/18/18 02/22/19 11/28/18 09:00 magnesium oxide 400 mg PO DAILY 02/18/18 02/22/19 11/28/18 09:00 metformin 1,000 mg PO BID 02/18/18 02/22/19 11/26/18 21:00 metoprolol succinate 50 mg PO QAM 02/18/18 02/22/19 11/29/18 05:30 multivitamin with minerals 1 tab PO DAILY 02/18/18 02/22/19 11/28/18 09:00 nitroglycerin 0.4 mg SUBLINGUAL UD PRN 02/18/18 02/22/19 Unknown ranitidine HCl 150 mg PO HS 02/18/18 02/22/19 11/28/18 21:00 rosuvastatin 40 mg PO HS 02/18/18 02/22/19 11/28/18 21:00 Ozempic 1 mg SUBCUT WK 10/28/18 02/22/19 11/26/18 09:00 Past Medical History Medical History CAD (coronary artery disease) 02/18/18- TRISH X 2 to RCA (acute on chronic mid RCA occlusion) GERD (gastroesophageal reflux disease) controlled HLD (hyperlipidemia) HTN (hypertension) Hypothyroidism Prostate cancer Pulmonary emboli 1986 (post-op)- s/p AC; no issues since Diabetes mellitus, type 2 NIDDM Gout History of spinal stenosis Obesity Osteoarthritis Peripheral neuropathy Seasonal allergies reason for inhaler rx (no recent use) Stomach ulcer "many" years ago Tachycardia hx; controlled on beta ira Exercise / Class Metabolic Activity II 4-5 Yardwork/Stairs/Walk up hill Past Family History Family History Father Diabetes Other Melanoma Past Surgical History Surgical History H/O prostatectomy H/O Spinal surgery Fusion of spine LUMBAR FUSION (2 SURGERIES) H/O shoulder surgery H/O surgical fusion joint Right SI joint fusion; subsequent revision: 11/29/18: Grade 2 view, MAC#3, ETT 8.0 at [facility] History of arthroscopy RIGHT/LEFT KNEE History of cardiac cath 02/18/18- TRISH X 2 to RCA (acute on chronic mid RCA occlusion) History of colonoscopy History of elbow surgery RIGHT/LEFT History of esophagogastroduodenoscopy (EGD) History of fusion of cervical spine MULTIPLE (HARDWARE PRESENT) History of tooth extraction Past Anesthesia History No Hx of Anesthesia Complications and No Family Hx of Anesthesia Complications History of PONV No Hx of PONV and No Hx of Motion Sickness Social History Smoking Status: Never smoker Do You Dip or Chew Tobacco: No Hx Alcohol Use: Yes alcohol intake frequency: holidays/special occasions only Hx Substance Use: No substance use type: does not use Review of Systems Reflux controlled. Patient denies chest pain, shortness of breath, dyspnea on exertion, cough, wheezing, palpitations. Physical Exam Vital Signs Last Vital Signs Temp 36.8 C 03/01/19 09:46 Pulse 80 03/01/19 09:46 Resp 16 03/01/19 09:46 BP 157/93 H 03/01/19 09:46 Pulse Ox 95 03/01/19 09:46 PHYSICAL Full neck and c-spine range of motion. Full TMJ range of motion. TMD 3 finger breaths Mallampati Score 1 Dentition: intact, several implants and cap on sides Lungs: clear throughout to auscultation Cardiac: regular rate and rhythm, no murmurs noted Spine: normal Carotid arteries: negative bruit Extremities: no edema Testing Electrocardiogram Date: 10/19/18 Findings: + NSR @ (78) Chest X-Ray Date: 11/23/18 Findings: + NAD Stress Test Date: 02/05/18 Type: exercise Resting EF: 55-60% This was an equivocal exercise stress echocardiogram. The patient is EKGs and the stress echocardiogram are negative however, we were able to reproduce his typical chest pain during exercise. 11.2 METS achieved. subsequent cardiac cath + TRISH x 2 placed 02/18/19 Cardiac Catheterization Date: 02/18/18 Successful PCI of mid to distal RCA with 2 overlapping TRISH (4.0 x 28, 3.0 x 33 Xience; post-dilated with 4.0 NC).
[2019-03-01 12:00] LABS: Basophils # (auto) 0.04 K/uL (0-0.2); Basophils % (auto) 0.6 %; Eosinophils # (auto) 0.11 K/uL (0-0.5); Eosinophils % (auto) 1.6 %; Hemoglobin 15.6 g/dL (14.0-18.0); Immature Granulocytes # (auto) 0.02 K/uL (0.00-0.02); Immature Granulocytes % (auto) 0.3 %; Lymphocytes # (auto) 1.69 K/uL (1.2-3.4); Lymphocytes % (auto) 25.1 %; Mean Corpuscular Hemoglobin 30.5 pg (25-34); Mean Corpuscular Hgb Conc 32.5 g/dL (32-36); Mean Corpuscular Volume 93.8 fL (80-100); Mean Platelet Volume 11.3 fL (7.4-10.4); Monocytes % (auto) 5.9 %; Neutrophils # (auto) 4.48 K/uL (1.4-6.5); Neutrophils % (auto) 66.5 %; Platelet Count 228 K/uL (130-400); RDW Coefficient of Variation 14.2 % (11.5-14.5); RDW Standard Deviation 48.6 fL (36.4-46.3); Red Blood Count 5.12 M/uL (4.7-6.1); White Blood Count 6.74 K/uL (4.8-10.8)
[2019-03-01 12:03] LABS: Estimated Average Glucose 157 mg/dl; Hemoglobin A1C 7.1 % (4.5-5.6)
[2019-03-01 12:05] LABS: Appearance Urine Clear (Clear); Bilirubin Urine Negative (Negative); Blood Urine Negative (Negative); Color Urine Yellow; Glucose Urine UA 3+ (Negative); Ketones Urine Negative (Negative); Leukocyte Esterase Urine Negative (Negative); Nitrite Urine Negative (Negative); Protein Urine Negative (Negative); Specific Gravity Urine 1.036 (1.000-1.030); Urobilinogen Urine Negative (Negative)
[2019-03-01 12:13] LABS: BUN Creatinine Ratio 23.1 (10-20); Calcium 9.2 mg/dl (8.5-10.1); Creatinine Clr Calc Pharmacy 92.8 ml/min; Est GFR (African American) 92.7; Potassium 4.1 mmol/L (3.5-5.1)
[~2019-03-08 10:22] MED LIST changes: +GABAPENTIN 300 MG CAP PO SCH; -GABAPENTIN 300 MG PO SCH
[2019-03-08] MEDS ORDERED: HYDROmorphone INJ 2 MG/ML SYR/VIAL ONE ×2 (11:46→13:08)
[2019-03-08] MEDS ORDERED: fentaNYL citrate 100 MCG/2 ML VIAL ONE ×3 (11:51→13:54)
[2019-03-08] MEDS ORDERED: MIDAZOLAM HCL 1 MG/ML 2ML VIAL ONE (11:51)
[2019-03-08] MEDS ORDERED: PROPOFOL IV EMULSION 10 MG/ML 20 ML VIAL IV ONE (12:04)
[2019-03-08] MEDS ORDERED: ONDANSETRON INJ 2 MG/ML 2 ML VIAL ONE (12:04)
[2019-03-08] MEDS ORDERED: LIDOCAINE HCL 2% 2 ML VIAL/AMP(20MG/ML) INFIL ONE (12:04)
[2019-03-08] MEDS ORDERED: DEXAMETHASONE SOD INJ 4 MG/ML VIAL ONE (12:04)
[2019-03-08] MEDS ORDERED: ROCURONIUM BROMIDE 10 MG/ML 5 ML VIAL ONE (12:04)
[2019-03-08] MEDS ORDERED: GLYCOPYRROLATE 0.2 MG/ML VIAL ONE (12:04)
[2019-03-08] MEDS ORDERED: NEOSTIGMINE METHYLSULFATE 1 MG/ML 10ML VIAL ONE (12:04)
[2019-03-08] MEDS ORDERED: NALOXONE HCL 0.4 MG/1 ML VIAL/CARP IV PRN (12:09)
[2019-03-08] MEDS ORDERED: HYDROmorphone INJ 1 MG/ML SYRINGE IV PRN (12:09)
[2019-03-08] MEDS ORDERED: FLUMAZENIL 0.1 MG/1 ML 10 ML VIAL IV PRN (12:09)
[2019-03-08] MEDS ORDERED: ONDANSETRON INJ 2 MG/ML 2 ML VIAL IV PRN ×2 (12:09→16:22)
[2019-03-08] MEDS ORDERED: LABETALOL HCL IV 5 MG/ML 20ML IV PRN (12:09)
[2019-03-08] MEDS ORDERED: PROMETHAZINE HCL 12.5 MG in SODIUM CHLORIDE 0.9% 50 ML IV PRN ×2 (12:09→16:22)
[2019-03-08] MEDS ORDERED: ATROPINE SULFATE 0.1 MG/ML 10ML SYR IV PRN (12:09)
[2019-03-08] MEDS ORDERED: ePHEDrine sulfate 50 MG/ML AMP IV PRN (12:09)
--- NOTE | 2019-03-08 12:42 | History & Physical Bridge Note ---
Date of Service March 08, 2019 History & Physical Bridge Note I have examined the patient, reviewed the History & Physical and in the interval since the performance of the History & Physical I have noted the following changes of clinical significance: no changes noted
--- NOTE | 2019-03-08 12:44 | History & Physical Report ---
Date of Service March 08, 2019 Assessment & Plan (1) Sacroiliitis: SI joint fusion on the left with removal of left iliac bolts. Present on Admission?: Yes History of Present Illness Chief Complaint: Severe left SI joint pain Primary Care Provider: Gaurav Crocker, DO This is a 68-year-old male well-known to the presents with severe left-sided sacroiliitis. After failing extensive course of nonoperative care is here for surgical intervention. Allergies Allergy/AdvReac Type Severity Reaction Status Date / Time prednisone Allergy Intermediate RASH Verified 03/08/19 10:43 pollen extracts Allergy Mild TREES,POLLEN-ITCHY Verified 03/08/19 10:43 ETES,STUFFY NOSE erythromycin base AdvReac Mild N/V Verified 03/08/19 10:43 simvastatin AdvReac Mild CRAMPING Verified 03/08/19 10:43 Home Medications Home Medications Medication Instructions Recorded Confirmed Type Jardiance 25 mg PO QAM 02/18/18 03/08/19 History Probiotic 3,000 mmu cells PO DAILY 02/18/18 03/08/19 History albuterol sulfate 2 puff INHALATION Q6H PRN 02/18/18 03/08/19 History aspirin 81 mg PO QAM 02/18/18 03/08/19 History glimepiride 4 mg PO QAM 02/18/18 03/08/19 History ketotifen fumarate 1 drp OPHTHALMIC (EYE) Q12H PRN 02/18/18 03/08/19 History levothyroxine 25 mcg PO QAM 02/18/18 03/08/19 History losartan 100 mg PO QAM 02/18/18 03/08/19 History magnesium oxide 400 mg PO DAILY 02/18/18 03/08/19 History metformin 1,000 mg PO BID 02/18/18 03/08/19 History metoprolol succinate 50 mg PO QAM 02/18/18 03/08/19 History multivitamin with minerals 1 tab PO DAILY 02/18/18 03/08/19 History nitroglycerin 0.4 mg SUBLINGUAL UD PRN 02/18/18 03/08/19 History rosuvastatin 40 mg PO HS 02/18/18 03/08/19 History Ozempic 1 mg SUBCUT WK 10/28/18 03/08/19 History omeprazole 20 mg PO DAILY 03/08/19 03/08/19 History Past Med/Surg History Medical History CAD (coronary artery disease) 02/18/18- TRISH X 2 to RCA (acute on chronic mid RCA occlusion) GERD (gastroesophageal reflux disease) controlled HLD (hyperlipidemia) HTN (hypertension) Hypothyroidism Prostate cancer Pulmonary emboli 1986 (post-op)- s/p AC; no issues since Diabetes mellitus, type 2 NIDDM Gout History of spinal stenosis Obesity Osteoarthritis Peripheral neuropathy Seasonal allergies reason for inhaler rx (no recent use) Stomach ulcer "many" years ago Tachycardia hx; controlled on beta ira Surgical History H/O prostatectomy H/O Spinal surgery Fusion of spine LUMBAR FUSION (2 SURGERIES) H/O shoulder surgery H/O surgical fusion joint Right SI joint fusion; subsequent revision: 11/29/18: Grade 2 view, MAC#3, ETT 8.0 at [facility] History of arthroscopy RIGHT/LEFT KNEE History of cardiac cath 02/18/18- TRISH X 2 to RCA (acute on chronic mid RCA occlusion) History of colonoscopy History of elbow surgery RIGHT/LEFT History of esophagogastroduodenoscopy (EGD) History of fusion of cervical spine MULTIPLE (HARDWARE PRESENT) History of tooth extraction Family History Father Diabetes Other Melanoma Social History Preferred Language: Ukrainian Communication Ability: Effective Visual Impairment: No Limitations Windows Systems Engineer Required: No Beliefs That Will Affect Care: None Current Living Situation: Spouse Other Information That Helps Us Care for You: No Feels Safe at Home: Yes Safety Concerns: Feels Safe At This Time Smoking Status: Never smoker Do You Dip or Chew Tobacco: No ; Second Hand Exposure: No ; Tobacco Cessation Education Requested by Patient: No Hx Alcohol Use: Yes Hx Substance Use: No Physical Exam Physical Exam: Patient is alert and oriented neurologically intact. Results & Data Vital Signs (Past 12 Hours) Vital Signs Temp Pulse Resp BP Pulse Ox 03/08/19 11:01 36.7 C 73 18 146/89 H 97
[2019-03-08] MEDS ORDERED: BACITRACIN INJ 50,000 UNIT VIAL ONE (13:17)
[2019-03-08] MEDS ORDERED: BUPIVACAINE/EPINEPHRINE 0.5% MPF 1:200,000 30 ML VIAL ONE (13:17)
[2019-03-08] MEDS ORDERED: ePHEDrine sulfate 50 MG/ML SYR ONE (14:37)
[2019-03-08] MEDS ORDERED: LARYING-O-JET KIT (LTA) ONE (14:57)
--- NOTE | 2019-03-08 14:58 | Operative Report ---
Post Operative Report Pre & Post Diagnosis Operation Date: 03/08/19 12:05 Pre-Op Diagnosis: Sacroiliitis, SI Joint Dysfunction Post-Op Diagnosis: Sacroiliitis, SI Joint Dysfunction Procedure Operation Date: 03/08/19 12:05 Actual Procedures #1 removal of left iliac bolts and connector. #2 open SI joint fusion on the left. #3 placement of Prolex allograft 25 mm in length filled with infuse collagen sponge. #4 placement of 2 globus SI screws across the left SI joint. Surgeon Jaspal Pro, [employer] Officer Lisa An Estimated Blood Loss 50 Findings Consistent with Post-Op Diagnosis Specimens None Indications This is a 68-year-old male well-known to me who presents with the above- mentioned diagnosis after failing extensive course of nonoperative care like to undergo the above-mentioned procedure. Description of Procedure Patient was met with identified and informed consent obtained. Patient was taken to the operative suite underwent intubation placed in the prone position check stable chest padded bolsters. All bony prominences well-padded eyes inspected to ensure no external pressure placed upon the peer at this point the left upper thigh and lumbar spine was prepped and draped in normal sterile fashion. And then placed an incision approximate 4 cm in length across the left SI joint between the superior and inferior iliac spines. Sharp dissection with the assistance of Bovie cautery performed down to and exposing the SI joint and iliac bolts. The iliac bolts and connector was removed without difficulty. I then placed a guidewire directly in the SI joint through direct visualization with the assistance of fluoroscopy. By way of this guidewire I placed a joint finder over the guidewire tapped into the SI joints. This was followed by a cannula over the guidewire placed with direct visualization depth verified with fluoroscopy. Then by way of drills and a box curette I open SI joint may space large enough for the bone graft. The 25 mm allograft filled with infuse collagen sponge was then tapped in position. I verified my position with fluoroscopy and direct visualization and palpation. After this complete approach the lateral aspect of the left upper buttock and created approximately 3 cm incision in the angle of the posterior slope of the sacrum. A guidewire was then placed across the superior aspect of the SI joint verified with fluoroscopic visualization. I then dilated to a 10 cannula and drilled across the joint. And 50 mm DUNAWAY-coated slotted screw filled with infuse collagen sponge and autograft was then placed across the SI joint. It demonstrated excellent bite. Then placed a second screw distal to this inferior to the allograft in the same fashion the screw was 40 mm in length again and DUNAWAY-coated slotted screw filled with local autograft and infuse collagen sponge locked in position. After this complete all incisions were copiously irrigated and closed with subcutaneous Vicryl and 4 Monocryl for final skin closure. Steri-Strips dressings placed. Patient awakened taken to PACU in a stable condition. Please note Lisa An present throughout the entire procedure involved in patient positioning complex portions of the surgery and final skin closure. I attest to the content of the Intraoperative Record and any orders documented therein. Any exceptions are noted below.
[2019-03-08] MEDS ORDERED: ESMOLOL HCL INJ 10 MG/ML 10ML VIAL IV ONE (15:20)
--- NOTE | 2019-03-08 15:53 | Anesthesiology Progress Note ---
Date of Service March 08, 2019 Anesthesia Post Procedure Vital Signs Vital Signs: Temp Pulse Pulse Resp BP Pulse Ox 03/08/19 15:40 64 18 126/85 100 03/08/19 15:30 60 14 124/79 100 03/08/19 15:20 71 15 138/78 100 03/08/19 15:14 97.9 F 65 12 129/68 99 03/08/19 11:01 98.1 F 73 18 146/89 H 97 Pain Intensity Lower Back: Pain Intensity: 5 Transfer of Care Handoff Completed per policy Notes Mental Status: alert / awake / arousable and participated in evaluation Patient Amnestic to Procedure: Yes Nausea / Vomiting: adequately controlled Pain: adequately controlled Airway Patency, RR, SpO2: stable & adequate BP & HR: stable & adequate Hydration State: stable & adequate Anesthetic Complications: no major complications apparent and Pt Satisfied with anesthetic care
--- NOTE | 2019-03-08 16:01 | Fluoroscopy Report ---
FL sacrum CLINICAL HISTORY: LEFT SACROILIAC JOINT FUSION COMPARISON STUDY: Lumbar spine radiograph September 12, 2018. FLUOROSCOPY TIME: 1 minute and 58 seconds. FLUOROSCOPIC IMAGES: 4. FINDINGS: These images demonstrate fusion of the left sacroiliac joint with 2 bolts. Lumbosacral fusi on hardware is partially imaged. Hardware is intact. There are no unexpected radiopaque foreign abdulaziz s. IMPRESSION: Expected findings following left sacroiliac joint fusion. Electronically signed by: Mitul Tello M.D. 03/08/2019 4:00 PM
[2019-03-08] MEDS ORDERED: ONDANSETRON 4 MG TAB PO PRN (16:22)
[2019-03-08] MEDS ORDERED: METOCLOPRAMIDE HCL INJ 5 MG/ML 2 ML VIAL IV PRN (16:22)
[2019-03-08] MEDS ORDERED: LORazepam 1 MG/2 ML VIAL IV PRN (16:22)
[2019-03-08] MEDS ORDERED: OXYCODONE HCL IR 5 MG TAB (IMMEDIATE RELEASE) PO PRN (16:22)
[2019-03-08] MEDS ORDERED: HYDROmorphone INJ 0.5 MG/0.5 ML SYR IV PRN (16:22)
[2019-03-08] MEDS ORDERED: ACETAMINOPHEN 500 MG TAB PO PRN (16:22)
[2019-03-08] MEDS ORDERED: LORazepam 1 MG TAB PO PRN (16:22)
[2019-03-08] MEDS ORDERED: NITROGLYCERIN SL 0.4 MG/TAB TAB SL PRN (16:22)
[2019-03-08] MEDS ORDERED: TRAMADOL HCL 50 MG TABLET PO PRN (16:22)
[2019-03-08] MEDS: LACTATED RINGER'S 1,000 ML IV SCH (16:39)
[2019-03-08] MEDS ORDERED: ROSUVASTATIN CALCIUM 20 MG TAB PO SCH (21:00)
[2019-03-08] MEDS: CEFAZOLIN 2000MG 2,000 MG/15 ML SYR IV SCH (21:00)
[2019-03-09] MEDS: CEFAZOLIN 2000MG 2,000 MG/15 ML SYR IV SCH (05:58)
[2019-03-09] MEDS: LACTATED RINGER'S 1,000 ML IV SCH (05:59)
[2019-03-09] MEDS ORDERED: LEVOTHYROXINE SODIUM 25 MCG TABLET PO SCH (06:30)
[2019-03-09] MEDS ORDERED: GLIMEPIRIDE 2 MG TAB PO SCH (07:00)
[2019-03-09] MEDS ORDERED: LACTOBACILLUS ACIDOPHILUS (FLORANEX) TAB PO SCH (09:00)
[2019-03-09] MEDS ORDERED: PANTOprazole 40 MG TAB PO SCH (09:00)
[2019-03-09] MEDS ORDERED: MAGNESIUM OXIDE 400 MG TAB PO SCH (09:00)
[2019-03-09] MEDS ORDERED: METOPROLOL SUCC 50MG EXT REL TAB PO SCH (09:00)
[2019-03-09] MEDS ORDERED: LOSARTAN POTASSIUM 50 MG TAB PO SCH (09:00)
[2019-03-09] MEDS ORDERED: NON-FORMULARY MEDICATION (Empagliflozin [Jardiance] 25 MG) PO SCH (09:00)
[2019-03-09] MEDS ORDERED: MULTIVITAMIN TAB PO SCH (09:00)
[2019-03-09] MEDS ORDERED: ASPIRIN 81 MG CHEW PO SCH (09:00)
--- NOTE | 2019-03-09 11:32 | Discharge Summary ---
Date of Service March 09, 2019 Admission HPI Per Admitting Provider This is a 68-year-old male well-known to the presents with severe left-sided sacroiliitis. After failing extensive course of nonoperative care is here for surgical intervention. Principal Diagnosis Left sacroiliitis Discharge Data Allergies Allergy/AdvReac Type Severity Reaction Status Date / Time prednisone Allergy Intermediate RASH Verified 03/08/19 10:43 pollen extracts Allergy Mild TREES,POLLEN-ITCHY Verified 03/08/19 10:43 ETES,STUFFY NOSE erythromycin base AdvReac Mild N/V Verified 03/08/19 10:43 simvastatin AdvReac Mild CRAMPING Verified 03/08/19 10:43 Procedures Performed Operation Date: 03/08/19 12:05 Actual Procedures p Left Sacroiliac Joint Fusion, (Left) - Jaspal Pro DO s Removal of Left Iliac Bolts(Left) - Jaspal Pro DO Ordered Studies 03/08/19 12:05 FL fluoroscopy <1hr Routine FL sacrum Routine Hospital Course (1) Sacroiliitis: Patient underwent revision left SI joint fusion. He tolerated as well as taken to orthopedic for postoperative. Postop day 1 he was tolerating physical therapy well. Pain was well controlled. Subsequently was discharged home. Discharge orders instructions from the chart for further review. Total Time Total Time Spent Total Time Spent (In Minutes): 20 minutes Discharge Plan Discharge Items Patient Disposition: Home - Self-Care Reason For Visit: SI Joint Dysfunction Discharge Diagnosis: Sacroiliitis Activity: As commented below Lifting: No more than 10 pounds Bathing: May shower/bathe in 3 days Weightbearing: Left toe touch Non-emergency contact: Primary Care Provider Call non-emergency contact if: you have any medication questions Follow-up/Referrals: Gaurav Crocker DO [Primary Care Provider] - Diet: Regular Addtl Attending Provider Instructions: Follow-up in 2 weeks as scheduled. Pending Studies at Discharge: No Stand-Alone Forms: My [facility] [employer] Medications and DC Order Prescriptions: New oxycodone 5 mg Tablet 5 mg PO Q4H PRN (Reason: Pain) Qty: 30 RF: 0 Continued Ozempic 1 mg/dose (2 mg/1.5 mL) Pen Injector 1 mg SUBCUT WK RF: 0 glimepiride 4 mg Tablet 4 mg PO QAM RF: 0 aspirin 81 mg Tablet,Chewable 81 mg PO QAM RF: 0 albuterol sulfate 90 mcg/actuation Hfa Aerosol Inhaler 2 puff INHALATION Q6H PRN (Reason: Shortness Of Breath Or Wheezing) RF: 0 ketotifen fumarate 0.025 % (0.035 %) Drops 1 drp OPHTHALMIC (EYE) Q12H PRN (Reason: Itching) RF: 0 losartan 100 mg Tablet 100 mg PO QAM RF: 0 levothyroxine 25 mcg Capsule 25 mcg PO QAM RF: 0 Jardiance 25 mg Tablet 25 mg PO QAM RF: 0 metoprolol succinate 50 mg Tablet Extended Release 24 Hr 50 mg PO QAM RF: 0 magnesium oxide 400 mg (241.3 mg magnesium) Tablet 400 mg PO DAILY RF: 0 metformin 1,000 mg Tablet 1,000 mg PO BID RF: 0 multivitamin with minerals Tablet 1 tab PO DAILY RF: 0 Probiotic 3 billion cell Capsule 3,000 mmu cells PO DAILY RF: 0 rosuvastatin 40 mg Tablet 40 mg PO HS RF: 0 nitroglycerin 0.4 mg Tablet, Sublingual 0.4 mg Sublingual UD PRN (Reason: Chest Pain) RF: 0 omeprazole tablet 20 mg PO DAILY RF: 0 Discharge Orders: Discharge Order (Routine); Ordered 03/09/19 Ordered By: Jaspal Pro Admission Data Admit Date/Time: 03/08/19 15:02 Attending Provider: Jaspal Pro Admit Provider: Jaspal Pro Primary Care Provider: Gaurav Crocker Other Interventions: Discharge Summary Assessment (RN) Last Done: 03/09/19 09:27
== END 2019-03-09 13:05 | disposition home or self-care (01) ==
LOC: 3N 10:22 → ASU 10:22